=== PATIENT | female | born 1975 | race Caucasian/White ===

== ENCOUNTER 2024-01-08 14:14 | Inpatient (IN) | payer OTHER ==
--- NOTE | 2024-01-08 14:51 | ED ---
General Adult HPI - General Stated complaint: abd pain Time Seen by Provider: 01/08/24 14:15 Source: patient, RN notes reviewed, old records reviewed - History of Present Illness Initial comments: Is a 48-year-old female who presents to the emergency department from [facility]. Patient comes to us after having been seen at the other facility and had a CAT scan that indicated she had acute appendicitis and a questionable small abscess. Patient was started on Zosyn at the other facility. Dr. Alston accepted the patient after he spoke with the ER attending at the other facility. Patient states she has had pain for 8 to 9 days and finally decided to go get worked up. Patient states she currently still has some right lower quadrant abdominal pain and is requesting some pain meds. Patient denies any fevers chills. Patient Nuys any dysuria hematuria urinary frequency. Review of Systems ROS Statement: Those systems with pertinent positive or pertinent negative responses have been documented in the HPI. ROS Other: All systems not noted in ROS Statement are negative. General Exam - General Exam Comments Initial Comments: GENERAL: Patient is well-developed and well-nourished. Patient is nontoxic and well- hydrated and is in mild distress. ENT: Neck is soft and supple. No significant lymphadenopathy is noted. Oropharynx is clear. Moist mucous membranes. Neck has full range of motion without eliciting any pain. EYES: The sclera were anicteric and conjunctiva were pink and moist. Extraocular movements were intact and pupils were equal round and reactive to light. Eyelids were unremarkable. PULMONARY: Unlabored respirations. Good breath sounds bilaterally. No audible rales rhonchi or wheezing was noted. CARDIOVASCULAR: There is a regular rate and rhythm without any murmurs gallops or rubs. ABDOMEN: Patient has right lower quadrant abdominal pain. Patient has rebound tenderness SKIN: Skin is clear with no lesions or rashes and otherwise unremarkable. NEUROLOGIC: Patient is alert and oriented x3. Cranial nerves II through XII are grossly int act. Motor and sensory are also intact. Normal speech, volume and content. Symmetrical smile. MUSCULOSKELETAL: Normal extremities with adequate strength and full range of motion. No lower extremity swelling or edema. No calf tenderness. LYMPHATICS: No significant lymphadenopathy is noted PSYCHIATRIC: Normal psychiatric evaluation. Medical Decision Making - Medical Decision Making Was pt. sent in by a medical professional or institution (, PA, BRIDGE MAINTAINER, urgent care, hospital, or usp...) When possible be specific @ -[facility] transfer the patient to our institution the physician in the ER spoke with me directly Did you speak to anyone other than the patient for history (EMS, parent, family, police, friend...)? What history was obtained from this source @ -ER director at [facility] Did you review nursing and triage notes (agree or disagree)? Why? @ -I reviewed and agree with nursing and triage notes Were old charts reviewed (outside hosp., previous admission, EMS record, old EKG, old radiological studies, urgent care reports/EKG's, usp records)? Report findings @ -I reviewed all the patient's chart CAT scan on the patient after the patient arrived Differential Diagnosis? @ -Differential Abdominal Pain Women: Appendicitis, Cholecystitis, diverticulosis, ischemic bowel, pancreatitis, h epatitis, UTI, gastroenteritis, AAA, incarcerated hernia, bowel obstruction, constipation, inflammatory bowel, hepatitis, peptic ulcer disease, splenic infarction, perforated viscus, vulvitis, ovarian torsion, PID, kidney stone, placenta abruption, this is not meant to be an all-inclusive list EKG interpreted by me (3pts min.). @ -As above X-rays interpreted by me (1pt min.). @ -None done CT interpreted by me (1pt min.). @ -None done U/S interpreted by me (1pt. min.). @ -None done What testing was considered but not performed or refused? (CT, X-rays, U/S, labs)? Why? @ -None What meds were considered but not given or refused? Why? @ -None Did you discuss the management of the patient with other professionals (professionals i.e. , CARMEN, BRIDGE MAINTAINER, lab, RT, psych nurse, high school social studies tutor, spice miller, teacher, digital controls technical officer, case advocate)? Give summary @ -I spoke with Dr. Alston about this case and he excepted the admission Was smoking cessation discussed for >3mins.? @ -No Was critical care preformed (if so, how long)? @ -No Were there social determinants of health that impacted care today? How? (Homelessness, low income, unemployed, alcoholism, drug addiction, transportation, low edu. Level, literacy, decrease access to med. care, long term, rehab)? @ -No Was there de-escalation of care discussed even if they declined (Discuss DNR or withdrawal of care, Hospice)? DNR status @ -No What co-morbidities impacted this encounter? (DM, HTN, Smoking, COPD, CAD, Cancer, CVA, ARF, Chemo, Hep., AIDS, mental health diagnosis, sleep apnea, morbid obesity)? @ -None Was patient admitted / discharged? Hospital course, mention meds given and route, prescriptions, significant lab abnormalities, going to OR and other pertinent info. @ -Patient was given pain meds on arrival and patient will be admitted to Dr. Alston Undiagnosed new problem with uncertain prognosis? @ -No Drug Therapy requiring intensive monitoring for toxicity (Heparin, Nitro, Insulin, Cardizem)? @ -No Were any procedures done? @ -No Diagnosis/symptom? @ -Acute appendicitis Acute, or Chronic, or Acute on Chronic? @ -acute Uncomplicated (without systemic symptoms) or Complicated (systemic symptoms)? @ -Complicated Side effects of treatment? @ -No Exacerbation, Progression, or Severe Exacerbation? @ -No Poses a threat to life or bodily function? How? (Chest pain, [place], [place], pneumonia, PE, COPD, DKA, ARF, appy, cholecystitis, CVA, Diverticulitis, Homicidal, Suicidal, threat to staff... and all critical care pts) @ -Yes this could lead to sepsis and endorgan dysfunction Disposition Clinical Impression: Acute appendicitis Disposition: ADMITTED IP TO THIS HOSP Referrals: Nonstaff,Physician [Primary Care Provider] - 1-2 days Time of Disposition: 14:53
[2024-01-08] MEDS: HYDROmorphone 0.5 MG/0.5 ML SYRINGE IVP PRN ×2 (15:05→20:02)
[2024-01-08] MEDS: SODIUM CHLORIDE 0.9% 1,000 ML IV ONE (15:40)
--- NOTE | 2024-01-08 18:35 | P.GSCN ---
History of Present Illness History of present illness: 48-year-old female who presents to the emergency department from [facility]. Patient comes to us after having been seen at the other facility and had a CAT scan that indicated she had acute appendicitis and a questionable small abscess. Patient was started on Zosyn at the other facility. Dr. Alston accepted the patient after he spoke with the ER attending at the other facility. Patient states she has had pain for 8 to 9 days and finally decided to go get worked up. Patient states she currently still has some right lower quadrant abdominal pain and is requesting some pain meds. Patient denies any fevers chills. Patient Nuys any dysuria hematuria urinary frequency. Review of Systems - Gastrointestinal Reports abdominal pain, Reports change in bowel habits, Reports nausea, Reports vomiting Past Medical History Past Medical History: No Reported History History of Any Multi-Drug Resistant Organisms: None Reported Past Surgical History: Unable to Obtain Smoking Status: Current every day smoker Medications and Allergies Home Medications Medication Instructions Recorded Confirmed Type Atorvastatin [Lipitor] 10 mg PO DAILY 01/08/24 01/08/24 History DULoxetine HCL [Cymbalta] 60 mg PO DAILY 01/08/24 01/08/24 History Metoprolol Succinate [Metoprolol 25 mg PO DAILY 01/08/24 01/08/24 History Succinate ER] lisinopriL [Zestril] 5 mg PO DAILY 01/08/24 01/08/24 History metFORMIN HCL [Glucophage] 500 mg PO DAILY 01/08/24 01/08/24 History Allergies Allergy/AdvReac Type Severity Reaction Status Date / Time No Known Allergies Allergy Verified 01/08/24 15:36 Surgical - Exam Osteopathic Statement: *. No significant issues noted on an osteopathic structural exam other than those noted in the History and Physical/Consult. Vital Signs Temp Pulse Resp BP Pulse Ox 98.3 F 91 18 112/81 97 01/08/24 14:54 01/08/24 14:54 01/08/24 14:54 01/08/24 14:54 01/08/24 14:54 general anxious Cardiovascular regular rhythm Pulmonary nonlabored breathing Abdomen is soft nondistended tender in the right lower quadrant/flank no guarding rebound tenderness Assessment and Plan Assessment: 48-year-old female with acute appendicitis Assessment Flagyl Clear liquid diet nothing by mouth past midnight Operating room on 01/08/2023 4 Time with Patient: Less than 30
[2024-01-08] MEDS: HYDROcodone/APAP 5-325MG 1 EACH TAB PO PRN (21:05)
[2024-01-08] MEDS: ATORVASTATIN 10 MG TAB PO SCH (22:06)
[2024-01-08] MEDS: METOPROLOL SUCCINATE (ER) 25 MG TAB.ER.24H PO SCH (22:06)
[2024-01-08] MEDS: DULoxetine HCL 60 MG CAPSULE.DR PO SCH (22:06)
[2024-01-08] MEDS: lisinopriL 5 MG TAB PO SCH (22:06)
[2024-01-09] MEDS ORDERED: SUCCINYLCHOLINE CHLORIDE 200 MG/10 ML VIAL IV ONE (09:22)
[2024-01-09] MEDS ORDERED: fentaNYL (PF) 50 MCG/ML 2 ML AMP ONE (09:22)
[2024-01-09] MEDS ORDERED: KETAMINE HCL IN 0.9 % NACL 50 MG/5 ML SYRINGE ONE (09:22)
[2024-01-09] MEDS ORDERED: LIDOCAINE 1% INJ 10MG/ML (20 ML MDV) ONE (09:22)
[2024-01-09] MEDS ORDERED: HYDROmorphone (PF) 1 MG/ML ONE (09:22)
[2024-01-09] MEDS ORDERED: ROCURONIUM 10 MG/ML (5 ML VIAL) IV ONE (09:22)
[2024-01-09] MEDS ORDERED: PROPOFOL 10 MG/ML 20 ML VIAL IV ONE (09:22)
[2024-01-09] MEDS ORDERED: SUGAMMADEX SODIUM 200 MG/2 ML SDV IV ONE (09:22)
[2024-01-09] MEDS ORDERED: MIDAZOLAM 2 MG/2 ML VIAL ONE (09:22)
[2024-01-09] MEDS: SODIUM CHLORIDE 0.9% 1,000 ML IV ONE (09:22)
[2024-01-09] MEDS: LIDOCAINE 1%-EPI 1:100,000 20 ML VIAL SQ ONE (09:57)
[2024-01-09] MEDS: LACTATED RINGERS 1,000 ML IV ONE ×4 (10:37→11:50)
[2024-01-09] MEDS: HYDROmorphone 0.5 MG/0.5 ML SYRINGE IVP PRN (12:30)
[2024-01-09] MEDS: ONDANSETRON 4 MG/2 ML VIAL IVP STA (12:51)
[2024-01-09 13:31] LABS: Basophils # (A) 0.1 k/uL (0-0.2); Basophils % (A) 0 %; Eosinophils # (A) 0.1 k/uL (0-0.7); Eosinophils % (A) 1 %; HCT 40.3 % (34.0-46.0); HGB 12.9 gm/dL (11.4-16.0); Lymphocytes # (A) 1.2 k/uL (1.0-4.8); Lymphocytes % (A) 6 %; MCH 30.1 pg (25.0-35.0); MCV 94.1 fL (80.0-100.0); Mean Platelet Volume 7.4; Monocytes # (A) 0.4 k/uL (0-1.0); Monocytes % (A) 2 %; Neutrophils # (A) 17.4 k/uL (1.3-7.7); Neutrophils % (A) 90 %; Platelet Count 453 k/uL (150-450); RBC 4.29 m/uL (3.80-5.40); RDW 12.3 % (11.5-15.5); WBC 19.2 k/uL (3.8-10.6)
[2024-01-09 13:41] LABS: African American GFR (CKD) >90 (>60 ml/min/1.73 sqM); Anion Gap 8 mmol/L; Blood Urea Nitrogen 12 mg/dL (7-17); Calcium 8.6 mg/dL (8.4-10.2); Carbon Dioxide 20 mmol/L (22-30); Chloride 108 mmol/L (98-107); Glucose 136 mg/dL (74-99); Non-African American GFR(CKD) >90 (>60 ml/min/1.73 sqM); Potassium 4.2 mmol/L (3.5-5.1); Prothrombin Time 10.8 sec (10.0-12.5); Sodium 136 mmol/L (137-145)
[2024-01-09] MEDS: IV FLUID CONTINUATION 1,000 ML IV ONE (14:15)
[2024-01-09] MEDS ORDERED: HYDROmorphone 0.5 MG/0.5 ML SYRINGE IVP PRN (14:24)
[2024-01-09] MEDS ORDERED: NALOXONE 0.4 MG/ML 1 ML VIAL IV PRN (14:27)
[2024-01-09] MEDS: PHENYLEPHRINE-0.9% NACL SYG 1,000 MCG/10 ML SYRINGE IVP ONE (14:45)
[2024-01-09] MEDS: DEXAMETHASONE SOD PHOSPHATE 4 MG/ML 1 ML VIAL IV ONE (15:47)
[2024-01-09] MEDS: ONDANSETRON 4 MG/2 ML VIAL IVP ONE (16:14)
[2024-01-09] MEDS: LACTATED RINGERS 1,000 ML IV SCH (16:14)
[2024-01-09] MEDS: SODIUM CHLORIDE 0.9% 1,000 ML IV SCH (21:13)
--- NOTE | 2024-01-09 22:11 | P.OP ---
Date of Procedure: 01/09/24 Preoperative Diagnosis: abdominal pain Postoperative Diagnosis: perforated colon Procedure(s) Performed: lap converted to open ileocectomy Anesthesia: ASPEN Surgeon: Quintin Alston Estimated Blood Loss (ml): 500 Pathology: other (ileum/cecum) Condition: stable Disposition: PACU Indications for Procedure: ctap demonstrating acute appendicitis Operative Findings: perforated colon Description of Procedure: The patient was brought to the operating room where she was cleaned and draped and sterile fashion. At time I was performed and everyone agreed with the information recited. Next a 5 mm incision was made in the left upper quadrant and a 5 mm port within you gain access to the abdomen. There were 2 More ports were placed one in the infraumbilical area and one in the supra pubic area. Once of the abdomen a large Mass like structure was encountered in the right lower quadrant. I took some time to dissect this off of the lateral wall however I saw gross stool in the abdomen. It was decided to convert to an open procedure. A number 15 blade was then used to make a midline incision from the infraumbilical incision to the supra pubic incision. Electrocautery was then used to dissect down to the perineum and the abdomen was open. Combination of sharp and blunt dissection was used to, remove the colon off of the lateral wall. The stool was locally contained. I freed up the colon along the white line of todt. The small ball was stuck in the right lower quadrant with a ton of adhesions, and so this was freed up using it combination of electrocautery and blunt dissection. Once the colon and the small bowel was freed up an endo MICHELLE stable 60 purple was used to resect small bowel 5 cm away from the ic valve. Device was then used to take down the mesentery to the colon once colon was freed up the seed MICHELLE 60 purple was then used resect the cecum. An enterotomy/colotomy was made in both ends of the resected bowel segments. An endo michelle staple load was fired twice. The anastomosis was closed with another endo Michelle 60 purple. The abdomen was survey and there was some slight oozing. This was controlled with surgical powder. The abdomen was then closed using 1-0 looped pds suture in a running fashion. A barbara drain was placed and secured using a 30 nylon suture. The incision was closed using mary. The patient was transported to pacu in stable condition.
--- NOTE | 2024-01-10 06:13 | P.PN ---
Progress Note - Text Progress Note Date: 01/10/24 Patient was seen and evaluated at bedside. Postop day #1 , s/p Lap converted to open ileocectomy. Patient epidural solution @ 8 mL per hour. Patient is comfortably lying on the bed. Rated pain levels 0-1 out of 10 in severity. Moving extremities well without any difficulty. He denied any red flag symptoms, pain over the catheter site. Physical exam: Vital signs: stable, afebrile Catheter site: Clean, and intact Dressing. no tenderness over the catheter area. Moving lower extremities without difficulty. Labs: Platelet count: 453 on 01/10/24 Anticoagulants: none so far Assessment: Acute postoperative pain secondary to Lap converted to open ileocectomy. Postop day #1 Thoracic epidural catheter day #2 Plan: Continue epidural infusion solution of Ropivacaine 0.16% and Dilaudid 20 g per ml at the rate of 8 mL per hour. We will continue epidural catheter two more d ay unless primary team planned to send the patient home then we will discontinue. Call anesthesia as needed
[2024-01-10 11:34] LABS: African American GFR (CKD) >90 (>60 ml/min/1.73 sqM); Anion Gap 3 mmol/L; Blood Urea Nitrogen 17 mg/dL (7-17); Calcium 8.4 mg/dL (8.4-10.2); Carbon Dioxide 28 mmol/L (22-30); Chloride 108 mmol/L (98-107); Glucose 89 mg/dL (74-99); Non-African American GFR(CKD) >90 (>60 ml/min/1.73 sqM); Potassium 4.3 mmol/L (3.5-5.1); Sodium 139 mmol/L (137-145)
[2024-01-10 11:40] LABS: Basophils % (A) 0 %; Eosinophils % (A) 0 %; HCT 35.8 % (34.0-46.0); HGB 11.6 gm/dL (11.4-16.0); Lymphocytes # (A) 1.5 k/uL (1.0-4.8); Lymphocytes % (A) 11 %; MCH 30.5 pg (25.0-35.0); MCHC 32.3 g/dL (31.0-37.0); MCV 94.4 fL (80.0-100.0); Mean Platelet Volume 7.5; Monocytes # (A) 0.6 k/uL (0-1.0); Monocytes % (A) 5 %; Neutrophils # (A) 11.1 k/uL (1.3-7.7); Neutrophils % (A) 84 %; Platelet Count 414 k/uL (150-450); RBC 3.79 m/uL (3.80-5.40); RDW 12.2 % (11.5-15.5); WBC 13.3 k/uL (3.8-10.6)
--- NOTE | 2024-01-10 13:00 | P.PN ---
Subjective Progress Note Date: 01/10/24 SURGICAL PROGRESS NOTE CHIEF COMPLAINT: Perforated colon HISTORY OF PRESENT ILLNESS: Patient is postop day #1 status post laparoscopy converted to open ileocecectomy. Her pain is controlled. She is epidural in place. She is now having flatus. Denies any nausea or vomiting. Afebrile. WBC is down from 19.2-13.3 hemoglobin 11.6. Urine output adequate LAURA drain 80 mL output serosanguineous PHYSICAL EXAM: VITAL SIGNS: Reviewed. GENERAL: Well-developed in no acute distress. ABDOMEN: Soft. Nondistended. Mild tenderness at incision site. Incisional dressing with small area of saturation. NEUROLOGIC: Alert and oriented. Cranial nerves II through XII grossly intact. ASSESSMENT: 1. Masslike structure right lower quadrant and perforated colon status post open ileocecectomy PLAN: -Continue epidural for pain control -Continue Cheatham catheter -Advance diet to clear liquids -Incentive spirometer ordered -Continue IV fluids -DVT prophylaxis subcu heparin and GI prophylaxis Pepcid Physician Used Car Make Ready Mechanic note has been reviewed by physician. Signing provider agrees with the documented findings, assessment, and plan of care. Objective - Vital Signs Vital signs: Vital Signs Temp 98.8 F 01/10/24 06:45 Pulse 83 01/10/24 06:45 Resp 17 01/10/24 06:45 BP 94/59 01/10/24 06:45 Pulse Ox 92 L 01/10/24 06:45 FiO2 Intake & Output 01/09/24 01/10/24 01/10/24 18:59 06:59 18:59 Intake Total 3350 Output Total 1310 120 Balance 2040 -120 Intake: IV 3350 Output: Drainage 160 120 Abdomen 160 120 Urine 650 Estimated Blood Loss 500 Other: Voiding Method Indwelling Catheter Indwelling Catheter - Labs CBC & Chem 7: 01/10/24 10:47 01/10/24 10:47 Labs: Abnormal Lab Results - Last 24 Hours (Table) 01/09/24 01/09/24 01/10/24 Range/Units 13:01 13:01 10:47 WBC 19.2 H 13.3 H (3.8-10.6) k/uL RBC 3.79 L (3.80-5.40) m/uL Plt Count 453 H (150-450) k/uL Neutrophils # 17.4 H 11.1 H (1.3-7.7) k/uL Sodium 136 L (137-145) mmol/L Chloride 108 H (98-107) mmol/L Carbon Dioxide 20 L (22-30) mmol/L Creatinine 0.50 L (0.52-1.04) mg/dL Glucose 136 H (74-99) mg/dL 01/10/24 Range/Units 10:47 WBC (3.8-10.6) k/uL RBC (3.80-5.40) m/uL Plt Count (150-450) k/uL Neutrophils # (1.3-7.7) k/uL Sodium (137-145) mmol/L Chloride 108 H (98-107) mmol/L Carbon Dioxide (22-30) mmol/L Creatinine (0.52-1.04) mg/dL Glucose (74-99) mg/dL Microbiology - Last 24 Hours (Table) 01/09/24 12:00 Gram Stain - Preliminary Appendix
[2024-01-10] MEDS: ROPIVACAINE 400 MG, HYDROMORPHONE (PF) 5 MG in SODIUM CHLORIDE 0.9% 170 ML EPIDURAL PRN (17:34)
[2024-01-10] MEDS: FAMOTIDINE 20 MG TAB PO SCH (21:56)
[2024-01-10] MEDS: HEPARIN SODIUM,PORCINE 5,000 UNIT/ML 1 ML VIAL SQ SCH (21:57)
[2024-01-11 08:30] LABS: Basophils # (A) 0.02 X 10*3/uL (0.00-0.10); Basophils % (A) 0.1 %; Eosinophils # (A) 0.02 X 10*3/uL (0.04-0.35); Eosinophils % (A) 0.1 %; HCT 30.5 % (37.2-46.3); HGB 9.4 g/dL (12.0-15.0); Lymphocytes # (A) 1.52 X 10*3/uL (0.90-5.00); Lymphocytes % (A) 10.8 %; MCH 30.2 pg (27.0-32.0); MCHC 30.8 g/dL (32.0-37.0); MCV 98.1 FL (80.0-97.0); Mean Platelet Volume 11.5 FL (9.5-12.2); Monocytes # (A) 1.08 X 10*3/uL (0.20-1.00); Monocytes % (A) 7.6 %; NRBC Per 100 WBC 0 X 10*3/uL (0.00-0.01); Neutrophils # (A) 11.41 X 10*3/uL (1.80-7.70); Neutrophils % (A) 80.8 %; Platelet Count 333 X 10*3/uL (140-440); RBC 3.11 X 10*6/uL (4.10-5.20); RDW 12.8 % (11.5-14.5); WBC 14.13 X 10*3/uL (4.50-10.00)
--- NOTE | 2024-01-11 10:50 | P.PN ---
Progress Note - Text 01/11/24 644am 48-year-old female status post exploratory lap. Patient has an epidural catheter for postop pain control with a solution running at 8 cc an hour with a VAS of 1. No complaint of nausea vomiting or pruritus. Patient has been able to ambulate. Plan to DC the epidural in a.m. tomorrow
[2024-01-11] MEDS: PIPERACILLIN-TAZOBACTAM 3.375 GM in SODIUM CHLORIDE 0.9% 100 ML IVPB SCH (15:02)
--- NOTE | 2024-01-11 15:05 | P.PN ---
Subjective Progress Note Date: 01/11/24 SURGICAL PROGRESS NOTE CHIEF COMPLAINT: Perforated colon HISTORY OF PRESENT ILLNESS: Patient is postop day #2 status post laparoscopy converted to open ileocecectomy. Patient is having drainage from the midline incision. Drainage is purulent with foul odor. She is having flatus. Denies any nausea or vomiting. Has epidural in place. Pain is controlled. Afebrile. No tachycardia. WBC did go up from 13.3-14.13 hemoglobin 11.6 down to 9.4 platelets 333 PHYSICAL EXAM: VITAL SIGNS: Reviewed. GENERAL: Well-developed in no acute distress. ABDOMEN: Soft. Nondistended. Incisional dressing was saturated. This was pulled back. Patient did have purulent foul-smelling drainage from lower midli ne incision. NEUROLOGIC: Alert and oriented. Cranial nerves II through XII grossly intact. ASSESSMENT: 1. Masslike structure right lower quadrant and perforated colon status post open ileocecectomy PLAN: -Start IV antibiotics -Culture drainage -Continue to monitor -Repeat CBC in a.m. -Continue epidural for pain control -Continue Cheatham catheter -Continue clear liquids -Incentive spirometer ordered -Continue IV fluids -DVT prophylaxis subcu heparin and GI prophylaxis Pepcid Physician Lead Software Tester note has been reviewed by physician. Signing provider agrees with the documented findings, assessment, and plan of care. Attestation Patient seen and examined at bedside. She does have drainage from the midline incision from the lower portion. Cultures were obtained. Patient was started on IV antibiotics. Recommended dressing changes as needed. Continue to follow white count. Increase activities. Continue Cheatham catheter as long as epidural is in place. Continue clear liquids for now. Maribeth Katz DO Objective - Vital Signs Vital signs: Vital Signs Temp 99.6 F 01/11/24 13:45 Pulse 91 01/11/24 13:45 Resp 17 01/11/24 13:45 BP 111/71 01/11/24 13:45 Pulse Ox 98 01/11/24 13:45 FiO2 Intake & Output 01/10/24 01/11/24 01/11/24 18:59 06:59 18:59 Intake Total 152.4 Output Total 660 300 Balance -660 -300 152.4 Intake: Intake, IV Titration 152.4 Amount Ropivacaine 400 mg 152.4 Hydromorphone (Pf) 5 mg In Sodium Chloride 0.9% 170 ml @ Per Protocol EPIDURAL .Q0M PRN Rx#: [id number] Output: Drainage 60 100 Abdomen 60 100 Urine 600 200 Other: Voiding Method Indwelling Catheter Indwelling Catheter Indwelling Catheter - Labs CBC & Chem 7: 01/11/24 02:19 01/10/24 10:47 Labs: Abnormal Lab Results - Last 24 Hours (Table) 01/11/24 Range/Units 02:19 WBC 14.13 H (4.50-10.00) X 10*3/uL RBC 3.11 L (4.10-5.20) X 10*6/uL Hgb 9.4 L (12.0-15.0) g/dL Hct 30.5 L (37.2-46.3) % MCV 98.1 H (80.0-97.0) FL MCHC 30.8 L (32.0-37.0) g/dL Immature Gran # 0.08 H (0.00-0.04) X 10*3/uL Neutrophils # 11.41 H (1.80-7.70) X 10*3/uL Monocytes # 1.08 H (0.20-1.00) X 10*3/uL Eosinophils # 0.02 L (0.04-0.35) X 10*3/uL Microbiology - Last 24 Hours (Table) 01/09/24 12:00 Gram Stain - Preliminary Appendix Wound Culture - Preliminary Gram Neg Bacilli
--- NOTE | 2024-01-12 06:04 | P.PN ---
Progress Note - Text Adequate analgesia with epidural. No epidural or anesthetic complications.
[2024-01-12 08:39] LABS: Blood Urea Nitrogen 10.8 mg/dL (9.0-27.0); Calcium 7.8 mg/dL (8.7-10.3); Carbon Dioxide 21.5 mmol/L (21.6-31.8); Chloride 106 mmol/L (96-109); Glucose 94 mg/dL (70-110); Potassium 3.5 mmol/L (3.5-5.5); Sodium 139 mmol/L (135-145)
[2024-01-12 09:25] LABS: Basophils # (A) 0.03 X 10*3/uL (0.00-0.10); Basophils % (A) 0.2 %; Eosinophils # (A) 0.09 X 10*3/uL (0.04-0.35); Eosinophils % (A) 0.7 %; HCT 29.6 % (37.2-46.3); HGB 9.3 g/dL (12.0-15.0); Lymphocytes # (A) 1.64 X 10*3/uL (0.90-5.00); MCH 30.9 pg (27.0-32.0); MCHC 31.4 g/dL (32.0-37.0); MCV 98.3 FL (80.0-97.0); Mean Platelet Volume 11.1 FL (9.5-12.2); Monocytes # (A) 0.85 X 10*3/uL (0.20-1.00); Monocytes % (A) 6.2 %; NRBC Per 100 WBC 0 X 10*3/uL (0.00-0.01); Neutrophils # (A) 10.99 X 10*3/uL (1.80-7.70); Neutrophils % (A) 80.3 %; Platelet Count 301 X 10*3/uL (140-440); RBC 3.01 X 10*6/uL (4.10-5.20); RDW 12.8 % (11.5-14.5); WBC 13.68 X 10*3/uL (4.50-10.00)
[2024-01-12] MEDS: LORazepam 0.5 MG TAB PO PRN (11:00)
--- NOTE | 2024-01-12 16:04 | P.PN ---
Subjective Progress Note Date: 01/12/24 SURGICAL PROGRESS NOTE CHIEF COMPLAINT: Perforated colon HISTORY OF PRESENT ILLNESS: Patient is postop day #3 status post laparoscopy converted to open ileocecectomy. Patient continues to have purulent drainage from the midline incision. She does report abdominal pain. She does have epidural in place for pain control. Cheatham catheter with pink purulent urine. Afebrile. WBC is down from 14-13 Hgb 9.3 PHYSICAL EXAM: VITAL SIGNS: Reviewed. GENERAL: Well-developed in no acute distress. ABDOMEN: Soft. Nondistended. Midline incision with purulent foul drainage NEUROLOGIC: Alert and oriented. Cranial nerves II through XII grossly intact. ASSESSMENT: 1. Masslike structure right lower quadrant and perforated colon status post open ileocecectomy 2. Surgical site infection PLAN: -Dr. Katz removed 2 mary from the midline incision -Continue antibiotics -Follow-up on culture results. Per nursing staff a new culture needs to be obtained from drainage. -Urinalysis ordered for evaluation of cloudy urine -Epidural and Cheatham catheter to be removed tomorrow -Diet advanced to full liquids -Ativan added for anxiety -Repeat CBC in a.m. -Incentive spirometer ordered -Decrease IV fluids to 75 mL/h -DVT prophylaxis subcu heparin and GI prophylaxis Pepcid Physician Director Of People note has been reviewed by physician. Signing provider agrees with the documented findings, assessment, and plan of care. Attestation Patient seen and examined at bedside. 2 mary were removed from midline inc ision as patient is having some purulent drainage. She is on IV antibiotics. Purulent drainage was removed after pressure applied to sides of the wound. We will follow-up culture results. Urine is also slightly cloudy and urinalysis to be performed. Epidural and Cheatham catheter to be removed tomorrow. Diet advanced to full liquid diet. Continue to increase activity. Continue to monitor leukocytosis. Maribeth Katz DO Objective - Vital Signs Vital signs: Vital Signs Temp 98.0 F 01/12/24 07:00 Pulse 75 01/12/24 07:00 Resp 17 01/12/24 08:39 BP 110/64 01/12/24 07:00 Pulse Ox 97 01/12/24 07:00 FiO2 Intake & Output 01/11/24 01/12/24 01/12/24 18:59 06:59 18:59 Intake Total 252.4 75.6 Output Total 45 220 10 Balance 207.4 -144.4 -10 Intake: Intake, IV Titration 152.4 75.6 Amount Ropivacaine 400 mg 152.4 75.6 Hydromorphone (Pf) 5 mg In Sodium Chloride 0.9% 170 ml @ Per Protocol EPIDURAL .Q0M PRN Rx#: [id number] Oral 100 Output: Drainage 45 20 10 Abdomen 45 20 10 Urine 200 Other: Voiding Method Indwelling Catheter Indwelling Catheter Indwelling Catheter - Labs CBC & Chem 7: 01/12/24 02:26 01/12/24 02:26 Labs: Abnormal Lab Results - Last 24 Hours (Table) 01/12/24 01/12/24 Range/Units 02: 02:26 WBC 13.68 H (4.50-10.00) X 10*3/uL RBC 3.01 L (4.10-5.20) X 10*6/uL Hgb 9.3 L (12.0-15.0) g/dL Hct 29.6 L (37.2-46.3) % MCV 98.3 H (80.0-97.0) FL MCHC 31.4 L (32.0-37.0) g/dL Immature Gran # 0.08 H (0.00-0.04) X 10*3/uL Neutrophils # 10.99 H (1.80-7.70) X 10*3/uL Carbon Dioxide 21.5 L (21.6-31.8) mmol/L Creatinine 0.5 L (0.6-1.5) mg/dL BUN/Creatinine Ratio 21.60 H (12.00-20.00) Ratio Calcium 7.8 L (8.7-10.3) mg/dL Microbiology - Last 24 Hours (Table) 01/11/24 12:00 Gram Stain - Preliminary Abdomen Wound Culture - Preliminary Pseudomonas aeruginosa Klebsiella oxytoca 01/09/24 12:00 Gram Stain - Final Appendix Wound Culture - Final Klebsiella pneumoniae Klebsiella ornithinolytica
[2024-01-12 16:37] LABS: Appearance,Urine Cloudy (Clear); Bacteria,Urine Rare /hpf; Bilirubin,Urine 1+ (Negative); Blood,Urine Moderate (Negative); Color,Urine Dark Yellow; Glucose,Urine (UA) Negative (Negative); Ketones,Urine Negative (Negative); Leukocyte Esterase,Urine Trace (Negative); Mucus,Urine Occasional /hpf; Nitrite,Urine Negative (Negative); Protein,Urine 1+ (Negative); RBC,Urine 47 /hpf (0-5); Specific Gravity,Urine 1.037 (1.001-1.035); WBC,Urine 6 /hpf (0-5)
[2024-01-13 08:42] LABS: Basophils # (A) 0.02 X 10*3/uL (0.00-0.10); Basophils % (A) 0.2 %; Eosinophils # (A) 0.16 X 10*3/uL (0.04-0.35); Eosinophils % (A) 1.7 %; HCT 28.2 % (37.2-46.3); HGB 8.6 g/dL (12.0-15.0); Lymphocytes # (A) 1.91 X 10*3/uL (0.90-5.00); Lymphocytes % (A) 19.7 %; MCH 30.2 pg (27.0-32.0); MCHC 30.5 g/dL (32.0-37.0); MCV 98.9 FL (80.0-97.0); Mean Platelet Volume 11.1 FL (9.5-12.2); Monocytes # (A) 0.64 X 10*3/uL (0.20-1.00); Monocytes % (A) 6.6 %; NRBC Per 100 WBC 0 X 10*3/uL (0.00-0.01); Neutrophils # (A) 6.87 X 10*3/uL (1.80-7.70); Platelet Count 357 X 10*3/uL (140-440); RBC 2.85 X 10*6/uL (4.10-5.20); RDW 12.9 % (11.5-14.5); WBC 9.68 X 10*3/uL (4.50-10.00)
[2024-01-13] MEDS ORDERED: HYDROmorphone 1 MG/ML 1 ML SYRINGE IVP PRN (09:07)
[2024-01-13] MEDS: HYDROcodone/APAP 5-325MG 1 EACH TAB PO PRN (11:18)
[2024-01-13] MEDS: MORPHINE SULFATE 4 MG/ML SYRINGE IVP PRN (13:10)
--- NOTE | 2024-01-13 15:02 | P.PN ---
Subjective Progress Note Date: 01/13/24 SURGICAL PROGRESS NOTE CHIEF COMPLAINT: Perforated colon HISTORY OF PRESENT ILLNESS: Patient is postop day #4 status post laparoscopy converted to open ileocecectomy. Patient continues to have purulent drainage from incision site. Surgeon removed 2 mary from abdomen. LAURA drain output is now purulent. Patient had 30 mL output from LAURA drain. She reports her pain is controlled. Epidural and Cheatham catheter to be removed today. She is having flatus. Afebrile. WBC is down from 13-9.68 Hgb 8.6 PHYSICAL EXAM: VITAL SIGNS: Reviewed. GENERAL: Well-developed in no acute distress. ABDOMEN: Soft. Nondistended. Midline incision with purulent foul drainage NEUROLOGIC: Alert and oriented. Cranial nerves II through XII grossly intact. ASSESSMENT: 1. Acute appendicitis with perforation and abscess. Status post open ileocecectomy 2. Surgical site infection PLAN: -Cheatham catheter and epidural to be discontinued today -IV morphine and [place] added for pain management -Consult infectious disease for antibiotic management -Continue antibiotics -Continue full liquid diet -Continue IV fluids -DVT prophylaxis subcu heparin and GI prophylaxis Pepcid Physician Application Support Administrator note has been reviewed by physician. Signing provider agrees with the documented findings, assessment, and plan of care. Objective - Vital Signs Vital signs: Vital Signs Temp 97.8 F 01/13/24 13:46 Pulse 66 01/13/24 13:46 Resp 16 01/13/24 13:46 BP 119/78 01/13/24 13:46 Pulse Ox 98 01/13/24 13:46 FiO2 Intake & Output 01/12/24 01/13/24 01/13/24 18:59 06:59 18:59 Intake Total 216.9 200 Output Total 330 360 30 Balance -330 -143.1 170 Intake: Intake, IV Titration 216.9 Amount Ropivacaine 400 mg 216.9 Hydromorphone (Pf) 5 mg In Sodium Chloride 0.9% 170 ml @ Per Protocol EPIDURAL .Q0M PRN Rx#: [id number] Oral 200 Output: Drainage 30 10 30 Abdomen 30 10 30 Urine 300 350 Other: Voiding Method Indwelling Catheter Indwelling Catheter Indwelling Catheter - Labs CBC & Chem 7: 01/13/24 02:06 01/12/24 02:26 Labs: Abnormal Lab Results - Last 24 Hours (Table) 01/12/24 01/13/24 Range/Units 15:47 02:06 RBC 2.85 L (4.10-5.20) X 10*6/uL Hgb 8.6 L (12.0-15.0) g/dL Hct 28.2 L (37.2-46.3) % MCV 98.9 H (80.0-97.0) FL MCHC 30.5 L (32.0-37.0) g/dL Immature Gran # 0.08 H (0.00-0.04) X 10*3/uL Urine Appearance Cloudy H (Clear) Ur Specific [place] 1.037 H (1.001-1.035) Urine Protein 1+ H (Negative) Urine Blood Moderate H (Negative) Urine Bilirubin 1+ H (Negative) Ur Leukocyte Esterase Trace H (Negative) Urine RBC 47 H (0-5) /hpf Urine WBC 6 H (0-5) /hpf Urine Bacteria Rare H (None) /hpf Urine Mucus Occasional H (None) /hpf Microbiology - Last 24 Hours (Table) 01/12/24 17:01 Gram Stain - Preliminary Abdomen 01/11/24 12:00 Gram Stain - Final Abdomen Wound Culture - Final Pseudomonas aeruginosa Klebsiella oxytoca Assessment and Plan Assessment: 48 yo female s/p ileocectomy -s/p abscess formation, continue IV abx -follow up ID recs -anticipate discharge this wednesday -follow up pathology Time with Patient: Less than 30
--- NOTE | 2024-01-13 22:54 | P.CONS ---
History of Present Illness - Reason for Consult Consult date: 01/13/24 Abdominal infection Requesting physician: Ayesha Arechiga - Chief Complaint Abdominal pain x few days - History of Present Illness Patient is a 48-year-old female with no significant past medical history presenting to the hospital 5 days ago for evaluation of abdominal pain in this patient who was initially evaluated at [facility] did have a CT suggestive of acute appendicitis and a question of small abscess patient was subsequently transferred to [facility] for surgical evaluation patient was taken to the OR on 01/09/2024 and did have a lap converted to open ileocecectomy with evidence of gross stool in the abdomen patient on presentation to the hospital was afebrile she did have 1 low-grade fever of 99.9 on 01/11/2024 patient has not been tachycardic except 1 time not hypotensive or hypoxic patient did have elevated white count of 19.2 which is currently down to 9.68 creatinine has been normal the abdominal culture did grew Klebsiella that is a sensitive pathogen subsequently the patient did have some drainage from abdominal wound cultures are growing Pseudomonas aeruginosa as well as Klebsiella patient has been treated with [facility] infectious disease consulted today for further management of antibiotic therapy as mentioned earlier patient denies having any fever or any chills denies having any URI symptoms no chest pain shortness of breath or cough no nausea vomiting abdominal pain has decreased intensity did have minimal drainage Review of Systems Positive point and negatives has been mentioned in the HPI, complete review of systems was performed and all other systems are negative Past Medical History Past Medical History: No Reported History History of Any Multi-Drug Resistant Organisms: None Reported Past Surgical History: Unable to Obtain Smoking Status: Current every day smoker Medications and Allergies Home Medications Medication Instructions Recorded Confirmed Type Atorvastatin [Lipitor] 10 mg PO DAILY 01/08/24 01/08/24 History DULoxetine HCL [Cymbalta] 60 mg PO DAILY 01/08/24 01/08/24 History Metoprolol Succinate [Metoprolol 25 mg PO DAILY 01/08/24 01/08/24 History Succinate ER] lisinopriL [Zestril] 5 mg PO DAILY 01/08/24 01/08/24 History metFORMIN HCL [Glucophage] 500 mg PO DAILY 01/08/24 01/08/24 History Allergies Allergy/AdvReac Type Severity Reaction Status Date / Time No Known Allergies Allergy Verified 01/08/24 15:36 Physical Exam Vitals: Vital Signs Temp Pulse Resp BP Pulse Ox 01/13/24 11:24 64 16 01/13/24 07:10 98.4 F 64 16 118/77 96 01/13/24 02:01 98.3 F 73 19 93/62 96 01/12/24 19:30 99.0 F 74 14 104/65 96 01/12/24 13:57 98.2 F 84 17 110/73 96 Intake and Output 01/12/24 01/13/24 01/13/24 22:59 06:59 14:59 Intake Total 216.9 Output Total 300 360 20 Balance -83.1 -360 -20 Intake: Intake, IV Titration 216.9 Amount Ropivacaine 400 mg 216.9 Hydromorphone (Pf) 5 mg In Sodium Chloride 0.9% 170 ml @ Per Protocol EPIDURAL .Q0M PRN Rx#: [id number] Output: Drainage 10 20 Abdomen 10 20 Urine 300 350 Other: Voiding Method Indwelling Catheter Indwelling Catheter GENERAL DESCRIPTION: Middle-aged female lying in bed, no distress. No tachypnea or accessory muscle of respiration use. HEENT: Shows Pallor , no scleral icterus. Oral mucous membrane is dry. NECK: Trachea central, no thyromegaly. LUNGS: Unlabored breathing. Clear to auscultation anteriorly. No wheeze or crackle. HEART: S1, S2, regular rate and rhythm. No loud murmur ABDOMEN: Soft, midline incision is intact with minimal drainage on the dressing mild tenderness EXTREMITIES: No edema of feet. SKIN: No rash, no masses palpable. NEUROLOGICAL: The patient is awake, alert, oriented x3, mood and affect normal. Results CBC & Chem 7: 01/13/24 02:06 01/12/24 02:26 Labs: Abnormal Lab Results - Last 24 Hours (Table) 01/12/24 01/13/24 Range/Units 15:47 02:06 RBC 2.85 L (4.10-5.20) X 10*6/uL Hgb 8.6 L (12.0-15.0) g/dL Hct 28.2 L (37.2-46.3) % MCV 98.9 H (80.0-97.0) FL MCHC 30.5 L (32.0-37.0) g/dL Immature Gran # 0.08 H (0.00-0.04) X 10*3/uL Urine Appearance Cloudy H (Clear) Ur Specific [place] 1.037 H (1.001-1.035) Urine Protein 1+ H (Negative) Urine Blood Moderate H (Negative) Urine Bilirubin 1+ H (Negative) Ur Leukocyte Esterase Trace H (Negative) Urine RBC 47 H (0-5) /hpf Urine WBC 6 H (0-5) /hpf Urine Bacteria Rare H (None) /hpf Urine Mucus Occasional H (None) /hpf Microbiology - Last 24 Hours (Table) 01/11/24 12:00 Gram Stain - Final Abdomen Wound Culture - Final Pseudomonas aeruginosa Klebsiella oxytoca Assessment and Plan (1) Sepsis Current Visit: Yes Status: Acute Code(s): A41.9 - SEPSIS, UNSPECIFIED ORGANISM SNOMED Code(s): 67005908 (2) Perforated appendicitis Current Visit: Yes Status: Acute Code(s): K35.32 - AC APPENDICITIS W PERF, LOC PERITONITIS, & GANGR, W/O ABSCS SNOMED Code(s): 65887493 (3) Leukocytosis Current Visit: Yes Status: Acute Code(s): D72.829 - ELEVATED WHITE BLOOD CELL COUNT, UNSPECIFIED SNOMED Code(s): 769649470 (4) Intra-abdominal abscess Current Visit: Yes Status: Acute Code(s): K65.1 - PERITONEAL ABSCESS SNOMED Code(s): 42821778 (5) Pseudomonas aeruginosa infection Current Visit: Yes Status: Acute Code(s): A49.8 - OTHER BACTERIAL INFECTIONS OF UNSPECIFIED SITE SNOMED Code(s): 16019769 Plan: 1patient presented to hospital with sepsis in this patient who did have a fever tachycardia elevated white count meeting criteria for SIRS source is perforated appendicitis with intra-abdominal abscess with intra-abdominal culture growing Klebsiella subsequently did have some purulent drainage from abdominal incision those are growing Pseudomonas in addition to Klebsiella. 2keeping in mind the patient did have perforated appendicitis with gross stool in the abdomen and did have an abscess that was drained still having purulent drainage it would be better to continue with the course of IV antibiotic on dis charge at the same time the patient is on Cymbalta that is interacting with the Cipro only oral option we have for the Pseudomonas 3-we will continue the patient on Zosyn obtain a midline on DC for outpatient IV antibiotic therapy and director of casework department to arrange for outpatient antibiotics Question concern answered We will follow on clinical condition and cultures to further adjust medication if needed Thank you for this consultation we will follow the patient along with you Dictation was produced using [employer] dictation software. please excuse any grammatical, word or spelling errors. Time with Patient: Greater than 30
[2024-01-14 08:48] LABS: Basophils # (A) 0.02 X 10*3/uL (0.00-0.10); Basophils % (A) 0.3 %; Eosinophils # (A) 0.17 X 10*3/uL (0.04-0.35); Eosinophils % (A) 2.2 %; HGB 8.8 g/dL (12.0-15.0); Lymphocytes # (A) 1.74 X 10*3/uL (0.90-5.00); Lymphocytes % (A) 22.7 %; MCH 29.9 pg (27.0-32.0); MCHC 31.4 g/dL (32.0-37.0); MCV 95.2 FL (80.0-97.0); Mean Platelet Volume 11.1 FL (9.5-12.2); Monocytes # (A) 0.53 X 10*3/uL (0.20-1.00); Monocytes % (A) 6.9 %; NRBC Per 100 WBC 0 X 10*3/uL (0.00-0.01); Neutrophils # (A) 5.14 X 10*3/uL (1.80-7.70); Platelet Count 359 X 10*3/uL (140-440); RBC 2.94 X 10*6/uL (4.10-5.20); RDW 12.8 % (11.5-14.5); WBC 7.67 X 10*3/uL (4.50-10.00)
--- NOTE | 2024-01-14 13:17 | P.PN ---
Subjective Progress Note Date: 01/14/24 Principal diagnosis: Reason for follow-up is perforated appendicitis intra-abdominal abscess Patient is a 48-year-old female with no significant past medical history presenting to the hospital for evaluation of abdominal pain has been diagnosed with perforated appendicitis intra-abdominal abscess status post open ileocecectomy abdominal culture grew Klebsiella with subsequent culture growing Pseudomonas as well probably this consultation. On today's evaluation that is 01/14/2024, patient has been afebrile, patient is breathing comfortably and is currently on room air, patient denies having any significant cough no chest pain, patient denies nausea vomiting or diarrhea and abdominal pain has decreased intensity mention less drainage. Patient white count 7.67 Objective - Vital Signs Vital signs: Vital Signs Temp 97.6 F 01/14/24 07:07 Pulse 71 01/14/24 07:07 Resp 17 01/14/24 07:07 BP 144/84 01/14/24 07:07 Pulse Ox 98 01/14/24 08:23 FiO2 Intake & Output 01/13/24 01/14/24 01/14/24 18:59 06:59 18:59 Intake Total 300 Output Total 80 460 Balance 220 -460 Intake: Oral 300 Output: Drainage 80 60 Abdomen 80 60 Urine 400 Other: Voiding Method Indwelling Catheter Toilet # Bowel Movements 1 - Exam GENERAL DESCRIPTION: Middle-age female lying in bed in no distress RESPIRATORY SYSTEM: Unlabored breathing , decreased breath sounds at bases HEART: S1 S2 regular rate and rhythm , ABDOMEN: Soft , mild distention less drainage of the dressing EXTREMITIES: No edema feet - Labs CBC & Chem 7: 01/14/24 02:28 01/12/24 02:26 Labs: Abnormal Lab Results - Last 24 Hours (Table) 01/14/24 Range/Units 02:28 RBC 2.94 L (4.10-5.20) X 10*6/uL Hgb 8.8 L (12.0-15.0) g/dL Hct 28.0 L (37.2-46.3) % MCHC 31.4 L (32.0-37.0) g/dL Immature Gran # 0.07 H (0.00-0.04) X 10*3/uL Microbiology - Last 24 Hours (Table) 01/12/24 17:01 Gram Stain - Preliminary Abdomen Wound Culture - Preliminary Gram Neg Bacilli 01/11/24 12:00 Gram Stain - Final Abdomen Wound Culture - Final Pseudomonas aeruginosa Klebsiella oxytoca Assessment and Plan (1) Sepsis Current Visit: Yes Status: Acute Code(s): A41.9 - SEPSIS, UNSPECIFIED ORGANISM SNOMED Code(s): 00912200 (2) Perforated appendicitis Current Visit: Yes Status: Acute Code(s): K35.32 - AC APPENDICITIS W PERF, LOC PERITONITIS, & GANGR, W/O ABSCS SNOMED Code(s): 81285102 (3) Leukocytosis Current Visit: Yes Status: Acute Code(s): D72.829 - ELEVATED WHITE BLOOD CELL COUNT, UNSPECIFIED SNOMED Code(s): 603229471 (4) Intra-abdominal abscess Current Visit: Yes Status: Acute Code(s): K65.1 - PERITONEAL ABSCESS SNOMED Code(s): 08382682 (5) Pseudomonas aeruginosa infection Current Visit: Yes Status: Acute Code(s): A49.8 - OTHER BACTERIAL INFECTIONS OF UNSPECIFIED SITE SNOMED Code(s): 17979148 Plan: 1patient presented to hospital with sepsis in this patient who did have a fever tachycardia elevated white count meeting criteria for SIRS source is perforated appendicitis with intra-abdominal abscess with intra-abdominal culture growing Klebsiella subsequently did have some purulent drainage from abdominal incision those are growing Pseudomonas in addition to Klebsiella. 2keeping in mind the patient did have perforated appendicitis with gross stool in the abdomen and did have an abscess that was drained still having purulent drainage it would be better to continue with the course of IV antibiotic on discharge at the same time the patient is on Cymbalta that is interacting with the Cipro only oral option we have for the Pseudomonas 3-discussed with the rn case manager to arrange for outpatient IV antibiotic therapy and for now continue with Zosyn Dictation was produced using [employer] software. please excuse any grammatical, word or spelling errors.
[2024-01-14 13:56] VITALS: BMI 41.5
--- NOTE | 2024-01-14 14:45 | P.PN ---
Subjective Progress Note Date: 01/14/24 SURGICAL PROGRESS NOTE CHIEF COMPLAINT: Perforated colon HISTORY OF PRESENT ILLNESS: Patient is postop day #5 status post laparoscopy converted to open ileocecectomy. Patient reports that she is starting to feel better. She is still having some pain. Denies any nausea or vomiting. She did have a bowel movement. LAURA drain 20ml purulent output. Patient has decrease in the amount of drainage from midline incision. Afebrile. WBC 7.69 Hgb 8.8 PHYSICAL EXAM: VITAL SIGNS: Reviewed. GENERAL: Well-developed in no acute distress. ABDOMEN: Soft. Nondistended. Midline incision decrease drainage noted. Drainage is purulent on dressing no erythema. NEUROLOGIC: Alert and oriented. Cranial nerves II through XII grossly intact. ASSESSMENT: 1. Acute appendicitis with perforation and abscess. Status post open ileocecectomy 2. Intra-abdominal infection PLAN: -Continue low fiber diet -Infectious disease recommending IV antibiotics at discharge. water manager working on arranging IV antibiotics -IR consulted for PICC line placement for home IV antibiotics -Continue pain management -Encourage patient to ambulate -Discontinue IV fluids -Abdominal binder ordered -DVT prophylaxis subcu heparin and GI prophylaxis Pepcid Physician Document Management Specialist note has been reviewed by physician. Signing provider agrees with the documented findings, assessment, and plan of care. Objective - Vital Signs Vital signs: Vital Signs Temp 98.1 F 01/14/24 13:33 Pulse 74 01/14/24 13:33 Resp 17 01/14/24 13:33 BP 121/75 01/14/24 13:33 Pulse Ox 98 01/14/24 13:33 FiO2 Intake & Output 01/13/24 01/14/24 01/14/24 18:59 06:59 18:59 Intake Total 300 Output Total 80 460 10 Balance 220 -460 -10 Weight 113.398 kg Intake: Oral 300 Output: Drainage 80 60 10 Abdomen 80 60 10 Urine 400 Other: Voiding Method Indwelling Catheter Toilet # Bowel Movements 1 - Labs CBC & Chem 7: 01/14/24 02:28 01/12/24 02:26 Labs: Abnormal Lab Results - Last 24 Hours (Table) 01/14/24 Range/Units 02:28 RBC 2.94 L (4.10-5.20) X 10*6/uL Hgb 8.8 L (12.0-15.0) g/dL Hct 28.0 L (37.2-46.3) % MCHC 31.4 L (32.0-37.0) g/dL Immature Gran # 0.07 H (0.00-0.04) X 10*3/uL Microbiology - Last 24 Hours (Table) 01/12/24 17:01 Gram Stain - Preliminary Abdomen Wound Culture - Preliminary Gram Neg Bacilli 01/11/24 12:00 Gram Stain - Final Abdomen Wound Culture - Final Pseudomonas aeruginosa Klebsiella oxytoca
--- NOTE | 2024-01-15 03:52 | P.PN ---
Progress Note - Text Progress Note Date: 01/15/24 CHIEF COMPLAINT: Perforated colon HISTORY OF PRESENT ILLNESS: Patient is postop day #6 status post laparoscopy converted to open ileocecectomy. Pain is controlled. Denies any nausea or vomiting. She is having bowel function. PHYSICAL EXAM: VITAL SIGNS: Reviewed. GENERAL: Well-developed in no acute distress. ABDOMEN: Soft. Nondistended. Midline incision decrease drainage noted. Drainage is purulent on dressing no erythema. NEUROLOGIC: Alert and oriented. Cranial nerves II through XII grossly intact. ASSESSMENT: 1. Acute appendicitis with perforation and abscess. Status post open ileocecectomy 2. Intra-abdominal infection PLAN: -Low Fiber Diet -Infectious disease recommending IV antibiotics at discharge. strategic alliances manager working on arranging IV antibiotics -PICC line placement for home IV antibiotics -Continue pain management -Encourage patient to ambulate -DVT prophylaxis Yobany Andersen DO [facility] [phone]
[2024-01-15 09:51] LABS: Blood Urea Nitrogen 5.4 mg/dL (9.0-27.0); Carbon Dioxide 23.2 mmol/L (21.6-31.8); Chloride 107 mmol/L (96-109); Glucose 93 mg/dL (70-110); Potassium 3.5 mmol/L (3.5-5.5); Sodium 141 mmol/L (135-145)
[2024-01-15 09:56] LABS: Basophils # (A) 0.03 X 10*3/uL (0.00-0.10); Basophils % (A) 0.3 %; Eosinophils # (A) 0.12 X 10*3/uL (0.04-0.35); Eosinophils % (A) 1.4 %; HCT 29.5 % (37.2-46.3); HGB 9.6 g/dL (12.0-15.0); Lymphocytes # (A) 1.86 X 10*3/uL (0.90-5.00); Lymphocytes % (A) 21.2 %; MCH 30.1 pg (27.0-32.0); MCHC 32.5 g/dL (32.0-37.0); MCV 92.5 FL (80.0-97.0); Mean Platelet Volume 10.4 FL (9.5-12.2); NRBC Per 100 WBC 0 X 10*3/uL (0.00-0.01); Neutrophils # (A) 5.97 X 10*3/uL (1.80-7.70); Platelet Count 448 X 10*3/uL (140-440); RBC 3.19 X 10*6/uL (4.10-5.20); RDW 12.9 % (11.5-14.5); WBC 8.78 X 10*3/uL (4.50-10.00)
--- NOTE | 2024-01-16 08:24 | P.PN ---
Progress Note - Text Progress Note Date: 01/16/24 HISTORY OF PRESENT ILLNESS: Patient is postop day #7 status post laparoscopy converted to open ileocecectomy. Pain is controlled. Denies any nausea or vomiting. She is having bowel function. She is having drainage from her midline incision. PHYSICAL EXAM: VITAL SIGNS: Reviewed. GENERAL: Well-developed in no acute distress. ABDOMEN: Soft. Nondistended. Midline incision decrease drainage noted. Drainage is purulent on dressing no erythema. NEUROLOGIC: Alert and oriented. Cranial nerves II through XII grossly intact. ASSESSMENT: 1. Acute appendicitis with perforation and abscess. Status post open ileocecectomy 2. Intra-abdominal infection PLAN: -Low Fiber Diet -Infectious disease recommending IV antibiotics at discharge. research manager working on arranging IV antibiotics -IR PICC line placement for home IV antibiotics pending -Continue pain management -Encourage patient to ambulate -DVT prophylaxis Yobany Andersen DO [facility] [phone]
--- NOTE | 2024-01-16 16:10 | P.PN ---
Subjective Progress Note Date: 01/15/24 Principal diagnosis: Reason for follow-up is perforated appendicitis intra-abdominal abscess Patient is a 48-year-old female with no significant past medical history presenting to the hospital for evaluation of abdominal pain has been diagnosed with perforated appendicitis intra-abdominal abscess status post open ileocecectomy abdominal culture grew Klebsiella with subsequent culture growing Pseudomonas as well probably this consultation. On today's evaluation that is 01/15/2024, Patient is afebrile this morning patient denies having any chest pain shortness of breath or cough, the patient is currently on room air, patient still complaining of lower abdominal pain but denies any worsening no nausea vomiting did have bowel movement. Patient white count is 8.78, creatinine 0.5 Objective - Vital Signs Vital signs: Vital Signs Temp 97.8 F 01/15/24 12:59 Pulse 68 01/15/24 12:59 Resp 18 01/15/24 12:59 BP 153/86 01/15/24 12:59 Pulse Ox 99 01/15/24 12:59 FiO2 Intake & Output 01/15/24 01/15/24 01/16/24 06:59 18:59 06:59 Output Total 60 240 Balance -60 -240 Output: Drainage 60 240 Abdomen 60 240 Other: Voiding Method Toilet Toilet # Voids 4 - Exam GENERAL DESCRIPTION: Middle-age female lying in bed in no distress RESPIRATORY SYSTEM: Unlabored breathing , decreased breath sounds at bases HEART: S1 S2 regular rate and rhythm , ABDOMEN: Soft , mild distention less drainage of the dressing EXTREMITIES: No edema feet - Labs CBC & Chem 7: 01/15/24 05:14 01/15/24 05:14 Labs: Abnormal Lab Results - Last 24 Hours (Table) 01/15/24 01/15/24 Range/Units 05:14 05:14 RBC 3.19 L (4.10-5.20) X 10*6/uL Hgb 9.6 L (12.0-15.0) g/dL Hct 29.5 L (37.2-46.3) % Plt Count 448 H (140-440) X 10*3/uL Immature Gran # 0.10 H (0.00-0.04) X 10*3/uL BUN 5.4 L (9.0-27.0) mg/dL Creatinine 0.5 L (0.6-1.5) mg/dL BUN/Creatinine Ratio 10.80 L (12.00-20.00) Ratio Calcium 8.0 L (8.7-10.3) mg/dL Microbiology - Last 24 Hours (Table) 01/12/24 17:01 Anaerobic Culture - Final Abdomen Bacteroides fragilis Group 01/12/24 17:01 Gram Stain - Preliminary Abdomen Wound Culture - Preliminary Klebsiella oxytoca Pseudomonas aeruginosa Assessment and Plan (1) Sepsis Current Visit: Yes Status: Acute Code(s): A41.9 - SEPSIS, UNSPECIFIED ORGANISM SNOMED Code(s): 96795808 (2) Perforated appendicitis Current Visit: Yes Status: Acute Code(s): K35.32 - AC APPENDICITIS W PERF, LOC PERITONITIS, & GANGR, W/O ABSCS SNOMED Code(s): 29306695 (3) Leukocytosis Current Visit: Yes Status: Acute Code(s): D72.829 - ELEVATED WHITE BLOOD CELL COUNT, UNSPECIFIED SNOMED Code(s): 053725691 (4) Intra-abdominal abscess Current Visit: Yes Status: Acute Code(s): K65.1 - PERITONEAL ABSCESS SNOMED Code(s): 43441519 (5) Pseudomonas aeruginosa infection Current Visit: Yes Status: Acute Code(s): A49.8 - OTHER BACTERIAL INFECTIONS OF UNSPECIFIED SITE SNOMED Code(s): 52352587 Plan: 1patient presented to hospital with sepsis in this patient who did have a fever tachycardia elevated white count meeting criteria for SIRS source is perforated appendicitis with intra-abdominal abscess with intra-abdominal culture growing Klebsiella subsequently did have some purulent drainage from abdominal incision those are growing Pseudomonas in addition to Klebsiella. 2 patient did have perforated appendicitis with gross stool in the abdomen and did have an abscess that was drained still having purulent drainage it would be better to continue with the course of IV antibiotic on discharge at the same time the patient is on Cymbalta that is interacting with the Cipro only oral option we have for the Pseudomonas, currently waiting for PICC line placement 3-patient to continue with Zosyn Dictation was produced using [employer] dictation software. please excuse any grammatical, word or spelling errors. Time with Patient: Less than 30
--- NOTE | 2024-01-16 16:10 | P.PN ---
Subjective Progress Note Date: 01/16/24 Principal diagnosis: Reason for follow-up is perforated appendicitis intra-abdominal abscess Patient is a 48-year-old female with no significant past medical history presenting to the hospital for evaluation of abdominal pain has been diagnosed with perforated appendicitis intra-abdominal abscess status post open ileocecectomy abdominal culture grew Klebsiella with subsequent culture growing Pseudomonas as well probably this consultation. On today's evaluation that is 01/16/2024,the patient denies any fever or any chills, patient is breathing comfortably on room air, the patient denies chest pain shortness of breath and no significant cough, patient with complaint of lower abdominal discomfort and did have drainage from incision denies any nausea vomiting or diarrhea. No new lab has been obtained today Objective - Vital Signs Vital signs: Vital Signs Temp 98.0 F 01/16/24 13:24 Pulse 78 01/16/24 13:24 Resp 16 01/16/24 13:24 BP 119/67 01/16/24 13:24 Pulse Ox 95 01/16/24 13:24 FiO2 Intake & Output 01/15/24 01/16/24 01/16/24 18:59 06:59 18:59 Intake Total 500 Output Total 240 20 20 Balance -240 -20 480 Weight 51 kg Intake: Oral 500 Output: Drainage 240 20 20 Abdomen 240 20 20 Other: Voiding Method Toilet Toilet Toilet # Voids 4 - Exam GENERAL DESCRIPTION: Middle-age female lying in bed in no distress RESPIRATORY SYSTEM: Unlabored breathing , decreased breath sounds at bases HEART: S1 S2 regular rate and rhythm , ABDOMEN: Soft , mild distention less drainage of the dressing EXTREMITIES: No edema feet - Labs CBC & Chem 7: 01/15/24 05:14 01/15/24 05:14 Assessment and Plan (1) Sepsis Current Visit: Yes Status: Acute Code(s): A41.9 - SEPSIS, UNSPECIFIED ORGANISM SNOMED Code(s): 51661919 (2) Perforated appendicitis Current Visit: Yes Status: Acute Code(s): K35.32 - AC APPENDICITIS W PERF, LOC PERITONITIS, & GANGR, W/O ABSCS SNOMED Code(s): 57581969 (3) Leukocytosis Current Visit: Yes Status: Acute Code(s): D72.829 - ELEVATED WHITE BLOOD CELL COUNT, UNSPECIFIED SNOMED Code(s): 603144821 (4) Intra-abdominal abscess Current Visit: Yes Status: Acute Code(s): K65.1 - PERITONEAL ABSCESS SNOMED Code(s): 82577374 (5) Pseudomonas aeruginosa infection Current Visit: Yes Status: Acute Code(s): A49.8 - OTHER BACTERIAL INFECTIONS OF UNSPECIFIED SITE SNOMED Code(s): 06084513 Plan: 1patient presented to hospital with sepsis in this patient who did have a fever tachycardia elevated white count meeting criteria for SIRS source is perforated appendicitis with intra-abdominal abscess with intra-abdominal culture growing Klebsiella subsequently did have some purulent drainage from abdominal incision those are growing Pseudomonas in addition to Klebsiella. 2 patient did have perforated appendicitis with gross stool in the abdomen and did have an abscess that was drained still having purulent drainage it would be better to continue with the course of IV antibiotic on discharge at the same time the patient is on Cymbalta that is interacting with the Cipro only oral option we have for the Pseudomonas, patient is currently waiting for PICC line placement and outpatient IV antibiotic arrangement and is currently being treated with Zosyn to continue Dictation was produced using [employer] dictation software. please excuse any grammatical, word or spelling errors. Time with Patient: Less than 30
[2024-01-17 08:42] LABS: Blood Urea Nitrogen 4.2 mg/dL (9.0-27.0); Carbon Dioxide 23.7 mmol/L (21.6-31.8); Chloride 108 mmol/L (96-109); Glucose 99 mg/dL (70-110); Potassium 3.5 mmol/L (3.5-5.5); Sodium 143 mmol/L (135-145)
[2024-01-17 08:43] LABS: Basophils # (A) 0.03 X 10*3/uL (0.00-0.10); Basophils % (A) 0.4 %; Calcium 8.1 mg/dL (8.7-10.3); Eosinophils # (A) 0.15 X 10*3/uL (0.04-0.35); Eosinophils % (A) 1.8 %; HCT 29.6 % (37.2-46.3); HGB 9.4 g/dL (12.0-15.0); Lymphocytes # (A) 1.84 X 10*3/uL (0.90-5.00); Lymphocytes % (A) 21.8 %; MCH 30.4 pg (27.0-32.0); MCHC 31.8 g/dL (32.0-37.0); MCV 95.8 FL (80.0-97.0); Mean Platelet Volume 11.2 FL (9.5-12.2); Monocytes # (A) 0.61 X 10*3/uL (0.20-1.00); Monocytes % (A) 7.2 %; NRBC Per 100 WBC 0 X 10*3/uL (0.00-0.01); Neutrophils # (A) 5.73 X 10*3/uL (1.80-7.70); Neutrophils % (A) 67.7 %; Platelet Count 434 X 10*3/uL (140-440); RBC 3.09 X 10*6/uL (4.10-5.20); RDW 13.4 % (11.5-14.5); WBC 8.45 X 10*3/uL (4.50-10.00)
--- NOTE | 2024-01-17 12:04 | P.DS ---
Providers Date of admission: 01/08/24 14:53 Expected date of discharge: 01/17/24 Attending physician: Quintin Alston DO Consults: 01/13/24 11:05 Consult Physician Routine Consulting Provider: Lore Villareal Consult Reason/Comments: abdominal infection Do you want consulting provider notified?: Yes Primary care physician: Physician Nonstaff Hospital Course: Discharge diagnosis 1. Acute appendicitis with perforation and abscess. Status post open ileocecectomy 2. Intra-abdominal infection Hospital course This is a 48-year-old female who presented with abdominal pain from [facility]. CAT scan that indicated she had acute appendicitis and a questionable small abscess. Patient is status post open ileocecectomy for an acute appendicitis with perforation and abscess. Patient did have drainage from her incision site during this admission. 2 mary removed. The drainage has decreased and is minimal to 0 drainage. LAURA drain output is also starting to clear and is less purulent. Patient's pain is controlled. She is tolerating diet. She is having bowel movements. She is afebrile. She has been up ambulating. Patient will be discharged with LAURA drain and IV antibiotics. Patient is stable for discharge. Please refer to chart for any further details. Physician Ruffler note has been reviewed by physician. Signing provider agrees with the documented findings, assessment, and plan of care. Attestation Patient with acute appendicitis with perforation and abscess formation status post open ileocecectomy. Patient did have drainage from incision site during admission and surgical wound was treated with IV antibiotics. LAURA drain output is more serosanguineous at this point. She is tolerating diet and having bowel function. She is surgically stable for doischarge with followup as outpatient. Maribeth Katz DO Patient Condition at Discharge: Stable Plan - Discharge Summary Discharge Rx Participant: Yes New Discharge Prescriptions: New HYDROcodone/APAP 10-325MG [Bartley 10-325] 1 tab PO Q6HR PRN 7 Days #28 tab PRN Reason: Pain Continue lisinopriL [Zestril] 5 mg PO DAILY DULoxetine HCL [Cymbalta] 60 mg PO DAILY Atorvastatin [Lipitor] 10 mg PO DAILY metFORMIN HCL [Glucophage] 500 mg PO DAILY Metoprolol Succinate [Metoprolol Succinate ER] 25 mg PO DAILY Discharge Medication List Atorvastatin [Lipitor] 10 mg PO DAILY 01/08/24 [History] DULoxetine HCL [Cymbalta] 60 mg PO DAILY 01/08/24 [History] Metoprolol Succinate [Metoprolol Succinate ER] 25 mg PO DAILY 01/08/24 [History] lisinopriL [Zestril] 5 mg PO DAILY 01/08/24 [History] metFORMIN HCL [Glucophage] 500 mg PO DAILY 01/08/24 [History] HYDROcodone/APAP 10-325MG [Bartley 10-325] 1 tab PO Q6HR PRN 7 Days #28 tab 01/14/24 [Rx] Follow up Appointment(s)/Referral(s): CT,Scan [Other] - 01/31/24 9:00 am (Please arrive at patient check in @ 9AM on WednesdayJanuary 30.) Quintin Alston DO [Doctor of Osteopathic Medicine] - 01/25/24 9:45 am [facility], [NON-STAFF] - 1-2 Days ([facility] will call you to schedule your in home nursing visits to begin IV antibiotic teaching. Your first visit will be tomorrow. ) Nonstaff,Physician [Primary Care Provider] - 1-2 days [facility], [REFERRING] - As Needed ([facility] will delivery IV antibiotics and supplies to your house this evening between 6-8pm. ) Patient Instructions/Handouts: Cooper-Bledsoe Drain Care (DC), Open Appendectomy (DC), PICC (Peripherally Inserted Central Catheter) (DC) Activity/Diet/Wound Care/Special Instructions: IV antibiotics per infectious disease, Zosyn for 15 more days No driving while taking Bartley No lifting over 10 pounds You may shower. No soaking or tub baths for 2 weeks Very light activity until you are reevaluated at your follow up appointment with your surgeon Keep a log of LAURA drain output and bring with you to your follow-up appointment Milk/strip drains 2-3 times a day Discharge Disposition: HOME SELF-CARE
--- NOTE | 2024-01-17 12:05 | P.PN ---
Subjective Progress Note Date: 01/17/24 Principal diagnosis: Reason for follow-up is perforated appendicitis intra-abdominal abscess Patient is a 48-year-old female with no significant past medical history presenting to the hospital for evaluation of abdominal pain has been diagnosed with perforated appendicitis intra-abdominal abscess status post open ileocecectomy abdominal culture grew Klebsiella with subsequent culture growing Pseudomonas as well probably this consultation. On today's evaluation that is 01/17/2024,the patient remains to be afebrile, patient is on room air not requiring supplemental oxygen and denies any shortness of breath no chest pain or cough.Patient denies having any nausea or vomiting, abdominal pain is currently controlled. Patient white count is 8.45, creatinine 0.5 abdominal culture with Klebsiella Pseudomonas and E. coli and bacteroids Objective - Vital Signs Vital signs: Vital Signs Temp 97.0 F L 01/17/24 07:00 Pulse 70 01/17/24 07:00 Resp 17 01/17/24 07:00 BP 127/62 01/17/24 07:00 Pulse Ox 97 01/17/24 09:12 FiO2 Intake & Output 01/16/24 01/17/24 01/17/24 18:59 06:59 18:59 Intake Total 500 Output Total 40 30 Balance 460 -30 Intake: Oral 500 Output: Drainage 40 30 Abdomen 40 30 Other: Voiding Method Toilet Toilet # Voids 5 3 - Exam GENERAL DESCRIPTION: Middle-age female lying in bed in no distress RESPIRATORY SYSTEM: Unlabored breathing , decreased breath sounds at bases HEART: S1 S2 regular rate and rhythm , ABDOMEN: Soft , mild distention less drainage of the dressing EXTREMITIES: No edema feet - Labs CBC & Chem 7: 01/17/24 03:58 01/17/24 03:58 Labs: Abnormal Lab Results - Last 24 Hours (Table) 01/17/24 01/17/24 Range/Units 03:58 03:58 RBC 3.09 L (4.10-5.20) X 10*6/uL Hgb 9.4 L (12.0-15.0) g/dL Hct 29.6 L (37.2-46.3) % MCHC 31.8 L (32.0-37.0) g/dL Immature Gran # 0.09 H (0.00-0.04) X 10*3/uL BUN 4.2 L (9.0-27.0) mg/dL Creatinine 0.5 L (0.6-1.5) mg/dL BUN/Creatinine Ratio 8.40 L (12.00-20.00) Ratio Calcium 8.1 L (8.7-10.3) mg/dL Microbiology - Last 24 Hours (Table) 01/12/24 17:01 Gram Stain - Final Abdomen Wound Culture - Final Klebsiella oxytoca Pseudomonas aeruginosa Escherichia coli Assessment and Plan (1) Sepsis Current Visit: Yes Status: Acute Code(s): A41.9 - SEPSIS, UNSPECIFIED ORGANISM SNOMED Code(s): 92803980 (2) Perforated appendicitis Current Visit: Yes Status: Acute Code(s): K35.32 - AC APPENDICITIS W PERF, LOC PERITONITIS, & GANGR, W/O ABSCS SNOMED Code(s): 47914980 (3) Leukocytosis Current Visit: Yes Status: Acute Code(s): D72.829 - ELEVATED WHITE BLOOD CELL COUNT, UNSPECIFIED SNOMED Code(s): 929684928 (4) Intra-abdominal abscess Current Visit: Yes Status: Acute Code(s): K65.1 - PERITONEAL ABSCESS SNOMED Code(s): 51430763 (5) Pseudomonas aeruginosa infection Current Visit: Yes Status: Acute Code(s): A49.8 - OTHER BACTERIAL INFECTIONS OF UNSPECIFIED SITE SNOMED Code(s): 99163178 Plan: 1patient presented to hospital with sepsis in this patient who did have a fever tachycardia elevated white count meeting criteria for SIRS source is perforated appendicitis with intra-abdominal abscess with intra-abdominal culture growing Klebsiella subsequently did have some purulent drainage from abdominal incision those are growing Pseudomonas in addition to Klebsiella. 2 patient did have perforated appendicitis with gross stool in the abdomen and did have an abscess that was drained still having purulent drainage it would be better to continue with the course of IV antibiotic on discharge at the same time the patient is on Cymbalta that is interacting with the Cipro only oral option we have for the Pseudomonas, 3-patient will have a PICC line placement this morning Zosyn prescription has been provided to the pillowcase sewer once arranged she will be able to go home from ID standpoint plan is for repeat CAT scan on January 30 before completion of her antibiotic therapy to make sure complete resolution of the abscess before discontinuation of antibiotic Dictation was produced using [employer] dictation software. please excuse any grammatical, word or spelling errors.
[2024-01-17 14:24] VITALS: BP 120/56; PULSE 77; RESP 16; TEMP 98.1
--- NOTE | 2024-01-19 21:18 | CDI ---
Documentation Clarification Form Date: 01/19/2024 09:06:01 PM From: Pilar Jules Phone: Admit Date: 01/08/2024 02:53:00 PM Patient Name: Elham Seth Visit Number: [id number] Discharge Date: 01/17/2024 03:58:00 PM ATTENTION: The Clinical Documentation Specialists (CDI) and [facility] Coding Staff appreciate your assistance in clarifying documentation. Please respond to the clarification below the line at the bottom and electronically sign. The CDI & [facility] Coding staff will review the response and follow-up if needed. Please note: Queries are made part of the Legal Health Record. If you have any questions, please contact the author of this message via ITS. Doctor/Provider: Ayesha Arechiga Unspecified anemia is documented Progress Note 01/10. Additional specificity regarding the type of anemia is requested. History/Risk Factors: 48yo F, sepsisd/t Klebsiella&Pseudomonas, acute appendicitis with perforation and abscess sp open ileocecectomy Clinical indicators: Hb/11 11.6 01/10 9.4 01/11 9.3 01/12 8.6 01/13 8.8- 7.69 01/14 9.6 Hct: 01/10 30.5 01/11 29.6 01/12 28.2 01/13 28.0 01/14 29.5 Treatment: monitored Please clarify the type and acuity of anemia: [x ] Acute blood loss anemia [ ] Acute on chronic blood loss anemia [ ] Unable to determine [ ] Other, please specify (Template Last Revised: April 2020) MTDD
== END 2024-01-17 15:58 | disposition home or self-care (01) | DRG 231 ==
LOC: EC 14:14 → 5NMEDONC 14:53 → 4SSUR 16:17
PROVIDERS: ADMIT Surgery; ATTEND Surgery
PROC: 0DTH0ZZ Resection of Cecum, Open Approach (ICD-10-PCS; principal; 2024-01-09 09:00)
PROC: 02HV33Z Insertion of Infusion Device into Superior Vena Cava, Percutaneous Approach (ICD-10-PCS; 2024-01-17)
DX: K35.33 Acute appendicitis with perforation, localized peritonitis, and gangrene, with abscess (principal); A41.52 Sepsis due to Pseudomonas; K63.1 Perforation of intestine (nontraumatic); T81.41XA Infection following a procedure, superficial incisional surgical site, initial encounter; D62 Acute posthemorrhagic anemia; Z53.31 Laparoscopic surgical procedure converted to open procedure; B96.1 Klebsiella pneumoniae [K. pneumoniae] as the cause of diseases classified elsewhere; Z79.84 Long term (current) use of oral hypoglycemic drugs; Z79.899 Other long term (current) drug therapy
CPT/HCPCS: 36573; 80048; 81001; 85025; 85610; 86850; 86900; 86901; 87070; 87075; 87077; 87186; 87205; 88307; 94760; 96374; 99285

== ENCOUNTER → 2024-02-07 | Outpatient (CLI) | payer OTHER ==
[2024-02-07 15:32] LABS: African American GFR (CKD) >90 (>60 ml/min/1.73 sqM); Blood Urea Nitrogen 16 mg/dL (7-17); Non-African American GFR(CKD) >90 (>60 ml/min/1.73 sqM)
--- NOTE | 2024-02-07 18:23 | CT ---
EXAMINATION TYPE: CT abdomen pelvis w con DATE OF EXAM: 02/07/2024 4:52 PM COMPARISON: CT abdomen pelvis most recent from 01/08/2024 CLINICAL INDICATION: Female, 48 years old with history of INTRA ABDOMINAL ABCESS; appendix and colon ruptured x 3 weeks ago. post surgical follow up TECHNIQUE: Axial CT abdomen pelvis w con;Sagittal and coronal reformats were created on a separate w orkstation. Contrast used:100 mL of Isovue 300 with IV Contrast, (none if empty) Oral contrast used: with Oral Contrast (none if empty) CT DLP: 1695.7 mGycm, Automated exposure control for dose reduction was used. FINDINGS: LOWER CHEST: Unremarkable ABDOMEN LIVER: Unremarkable GALLBLADDER AND BILE DUCTS: Unremarkable. PANCREAS: Unremarkable. SPLEEN: Unremarkable. ADRENAL GLANDS: Stable left adrenal 14 mm nodule. KIDNEYS AND URETERS: No evidence of hydronephrosis or renal calculus. The ureters are unremarkable. PELVIS BLADDER: No evidence for wall thickening or mass given limitations of exam. REPRODUCTIVE: The uterus is surgically absent. ABDOMEN & PELVIS STOMACH AND BOWEL: No evidence of bowel obstruction. Postsurgical changes of the right colon no evide nce for organizing fluid collection. PERITONEUM/RETROPERITONEUM: No abscess within the abdomen. No evidence of pneumoperitoneum or free fl uid. Soft tissue near the surgical bed measuring 15 x 17 x 24 mm series 9 image 37 and series 8 image 49 possibly representing postsurgical change. VASCULATURE: No evidence of aortic aneurysm. MUSCULOSKELETAL: No acute osseous abnormalities LYMPH NODES: No gross evidence for lymphadenopathy. SOFT TISSUE/ABDOMINAL WALL: There is a heterogenous fluid collection along the anterior abdominal wal l subcutaneous tissues near midline with foci of gas measuring up to 13.0 cm x 3.0 cm x 1.2 cm. IMPRESSION: 1. Fluid collection thought to be along the anterior abdominal wall surgical site extending at least 13 cm with foci of gas. Further evaluation and evaluation for infection such as abscess recommended consideration for aspiration and drainage with ultrasound guidance should be considered. 2. Postsurgical changes in the abdomen without evidence for organizing fluid collection in the abdom en. There is soft tissue density in the right surgical bed likely representing postsurgical change/sc arring. A Vance level critical message alert has been initiated for Lore Villareal MD via the [employer] Critical Results System on 02/07/2024 6:19 PM. This message alert has been sent to Estrella Kendrick via the preferences provided by the clinician for the receipt of Radiology Critical Findings. Klip.in ID [id number]. [facility], , 02/07/2024 6:21 PM
== END | disposition home or self-care (01) ==
LOC: RADCTMAIN 14:38
PROVIDERS: ATTEND Internal Medicine Infectious Disease
DX: R19.09 Other intra-abdominal and pelvic swelling, mass and lump (principal); Z90.49 Acquired absence of other specified parts of digestive tract
CPT/HCPCS: 82565; 84520; 74177; 36415; Q9967

== ENCOUNTER 2024-02-09 07:25 | Inpatient (IN) | payer OTHER ==
--- NOTE | 2024-02-09 08:09 | ED ---
General Adult HPI - General Chief complaint: Skin/Abscess/Foreign Body Stated complaint: ABN labs Time Seen by Provider: 02/09/24 07:37 Source: patient, RN notes reviewed, old records reviewed Mode of arrival: ambulatory Limitations: no limitations - History of Present Illness Initial comments: 48-year-old female presenting for evaluation of abnormal outpatient CT. Patient is currently on IV antibiotics through PICC line for intra-abdominal infection after perforated appendicitis. Patient had a laparotomy on January 08. She has been followed by infectious disease and received a CT scan of the abdomen 2 days prior which she was informed today that showed a fluid collection concerning for abscess. She was sent to the emergency department for evaluation. Patient states she feels quite well and has been doing good. No fevers. No significant abdominal pain. - Related Data Home Medications Medication Instructions Recorded Confirmed Atorvastatin [Lipitor] 10 mg PO DAILY 01/08/24 01/08/24 DULoxetine HCL [Cymbalta] 60 mg PO DAILY 01/08/24 01/08/24 Metoprolol Succinate [Metoprolol 25 mg PO DAILY 01/08/24 01/08/24 Succinate ER] lisinopriL [Zestril] 5 mg PO DAILY 01/08/24 01/08/24 metFORMIN HCL [Glucophage] 500 mg PO DAILY 01/08/24 01/08/24 Previous Rx's Medication Instructions Recorded HYDROcodone/APAP 10-325MG [[place] 1 tab PO Q6HR PRN 7 Days #28 tab 01/14/24 10-325] Allergies Allergy/AdvReac Type Severity Reaction Status Date / Time No Known Allergies Allergy Verified 02/09/24 07:26 Review of Systems ROS Statement: Those systems with pertinent positive or pertinent negative responses have been documented in the HPI. ROS Other: All systems not noted in ROS Statement are negative. Past Medical History Past Medical History: Diabetes Mellitus, Hyperlipidemia, Hypertension History of Any Multi-Drug Resistant Organisms: None Reported Past Surgical History: Appendectomy Additional Past Surgical History / Comment(s): partial hysterectomy Smoking Status: Current every day smoker General Exam Limitations: no limitations General appearance: alert, in no apparent distress Head exam: Present: atraumatic, normocephalic Eye exam: Present: normal appearance, PERRL ENT exam: Present: normal exam Neck exam: Present: normal inspection. Absent: tenderness, meningismus Respiratory exam: Present: normal lung sounds bilaterally. Absent: respiratory distress, wheezes Cardiovascular Exam: Present: regular rate, normal rhythm GI/Abdominal exam: Present: soft, other (Surgical incision is well-healed). Absent: distended, tenderness Extremities exam: Present: normal inspection, normal capillary refill Neurological exam: Present: alert, oriented X3 Psychiatric exam: Present: normal affect, normal mood Skin exam: Present: warm, dry, intact Course Vital Signs 02/09/24 07:26 Temperature 97.9 F Pulse Rate 88 Respiratory 18 Rate Blood Pressure 140/85 O2 Sat by Pulse 100 Oximetry Medical Decision Making - Medical Decision Making Was pt. sent in by a medical professional or institution (, PA, SUPPLY AIDE, urgent care, hospital, or usp...) When possible be specific @ -No Did you speak to anyone other than the patient for history (EMS, parent, family, police, friend...)? What history was obtained from this source @ -No Did you review nursing and triage notes (agree or disagree)? Why? @ -I reviewed and agree with nursing and triage notes Were old charts reviewed (outside hosp., previous admission, EMS record, old EKG, old radiological studies, urgent care reports/EKG's, usp records)? Report findings @ -No old charts were reviewed Differential Diagnosis: Postoperative abdominal wall abscess, vs seroma EKG interpreted by me (3pts min.). @ -As above X-rays interpreted by me (1pt min.). @ -None done CT interpreted by me (1pt min.). @ -[CT from 2 days prior reviewed, abdominal wall fluid collection with soft tissue gas U/S interpreted by me (1pt. min.). @ -None done What testing was considered but not performed or refused? (CT, X-rays, U/S, labs)? Why? @ -None What meds were considered but not given or refused? Why? @ -None Did you discuss the management of the patient with other professionals (amisha luther i.e. , CARMEN, SUPPLY AIDE, lab, RT, psych nurse, psychotherapist social worker, recapper, teacher, motorized squad commanding officer, hospice case manager)? Give summary @ -Case discussed with Dr. Ramirez who will admit, Dr. Katz covering for Dr. Estrella lucas Was smoking cessation discussed for >3mins.? @ -No Was critical care preformed (if so, how long)? @ -No Were there social determinants of health that impacted care today? How? (Homelessness, low income, unemployed, alcoholism, drug addiction, transportation, low edu. Level, literacy, decrease access to med. care, [facility], rehab)? @ -No Was there de-escalation of care discussed even if they declined (Discuss DNR or withdrawal of care, Hospice)? DNR status @ -No What co-morbidities impacted this encounter? (DM, HTN, Smoking, COPD, CAD, Cancer, CVA, ARF, Chemo, Hep., AIDS, mental health diagnosis, sleep apnea, morbid obesity)? @ -Recent laparotomy secondary to perforated appendix Was patient admitted / discharged? Hospital course, mention meds given and route, prescriptions, significant lab abnormalities, going to OR and other pertinent info. @ -Laboratory testing unremarkable. Patient continued on Zosyn. Admitted for evaluation by infectious disease and general surgery. May require IR evaluation. Laboratory testing unremarkable. Undiagnosed new problem with uncertain prognosis? @ -No Drug Therapy requiring intensive monitoring for toxicity (Heparin, Nitro, Insulin, Cardizem)? @ -No Were any procedures done? @ -No Diagnosis/symptom? @ -Anterior abdominal wall fluid collection with subcutaneous gas, possible infection Acu[te, or Chronic, or Acute on Chronic? @Acute Uncomplicated (without systemic symptoms) or Complicated (systemic symptoms)? @ -Default Side effects of treatment? @ -No Exacerbation, Progression, or Severe Exacerbation? @ -No Poses a threat to life or bodily function? How? (Chest pain, [place], [place], pneumonia, PE, COPD, DKA, ARF, appy, cholecystitis, CVA, Diverticulitis, Homicidal, Suicidal, threat to staff... and all critical care pts) @ -[Yes, sepsis - Lab Data Result diagrams: 02/09/24 08:32 02/09/24 08:32 Lab Results 02/09/24 02/09/24 02/09/24 Range/Units 08:32 08:32 08:32 WBC 5.5 (3.8-10.6) k/uL RBC 4.15 (3.80-5.40) m/uL Hgb 12.3 (11.4-16.0) gm/dL Hct 38.8 (34.0-46.0) % MCV 93.5 (80.0-100.0) fL MCH 29.7 (25.0-35.0) pg MCHC 31.7 (31.0-37.0) g/dL RDW 13.8 (11.5-15.5) % Plt Count 318 (150-450) k/uL MPV 7.9 Neutrophils % 56 % Lymphocytes % 32 % Monocytes % 5 % Eosinophils % 4 % Basophils % 1 % Neutrophils # 3.1 (1.3-7.7) k/uL Lymphocytes # 1.8 (1.0-4.8) k/uL Monocytes # 0.3 (0-1.0) k/uL Eosinophils # 0.2 (0-0.7) k/uL Basophils # 0.0 (0-0.2) k/uL Hypochromasia Slight PT 10.2 (10.0-12.5) sec INR 0.9 (<1.2) APTT 24.8 (22.0-30.0) sec Sodium 140 (137-145) mmol/L Potassium 4.1 (3.5-5.1) mmol/L Chloride 108 H (98-107) mmol/L Carbon Dioxide 24 (22-30) mmol/L Anion Gap 8 mmol/L BUN 11 (7-17) mg/dL Creatinine 0.60 (0.52-1.04) mg/dL Est GFR (CKD-EPI)AfAm >90 (>60 ml/min/1.73 sqM) Est GFR (CKD-EPI)NonAf >90 (>60 ml/min/1.73 sqM) Glucose 106 H (74-99) mg/dL Plasma Lactic Acid Miguel A (0.7-2.0) mmol/L Calcium 9.6 (8.4-10.2) mg/dL Total Bilirubin 0.3 (0.2-1.3) mg/dL AST 24 (14-36) U/L ALT 22 (4-34) U/L Alkaline Phosphatase 89 (38-126) U/L Total Protein 6.4 (6.3-8.2) g/dL Albumin 4.0 (3.5-5.0) g/dL 02/09/24 Range/Units 08:32 WBC (3.8-10.6) k/uL RBC (3.80-5.40) m/uL Hgb (11.4-16.0) gm/dL Hct (34.0-46.0) % MCV (80.0-100.0) fL MCH (25.0-35.0) pg MCHC (31.0-37.0) g/dL RDW (11.5-15.5) % Plt Count (150-450) k/uL MPV Neutrophils % % Lymphocytes % % Monocytes % % Eosinophils % % Basophils % % Neutrophils # (1.3-7.7) k/uL Lymphocytes # (1.0-4.8) k/uL Monocytes # (0-1.0) k/uL Eosinophils # (0-0.7) k/uL Basophils # (0-0.2) k/uL Hypochromasia PT (10.0-12.5) sec INR (<1.2) APTT (22.0-30.0) sec Sodium (137-145) mmol/L Potassium (3.5-5.1) mmol/L Chloride (98-107) mmol/L Carbon Dioxide (22-30) mmol/L Anion Gap mmol/L BUN (7-17) mg/dL Creatinine (0.52-1.04) mg/dL Est GFR (CKD-EPI)AfAm (>60 ml/min/1.73 sqM) Est GFR (CKD-EPI)NonAf (>60 ml/min/1.73 sqM) Glucose (74-99) mg/dL Plasma Lactic Acid Miguel A 1.4 (0.7-2.0) mmol/L Calcium (8.4-10.2) mg/dL Total Bilirubin (0.2-1.3) mg/dL AST (14-36) U/L ALT (4-34) U/L Alkaline Phosphatase (38-126) U/L Total Protein (6.3-8.2) g/dL Albumin (3.5-5.0) g/dL Disposition Clinical Impression: Abdominal wall abscess Disposition: ADMITTED IP TO THIS [facility] Condition: Stable Is patient prescribed a controlled substance at d/c from ED?: No Referrals: None,Stated [Primary Care Provider] - 1-2 days Time of Disposition: 10:22
[2024-02-09 08:51] LABS: Basophils % (A) 1 %; Eosinophils # (A) 0.2 k/uL (0-0.7); Eosinophils % (A) 4 %; HCT 38.8 % (34.0-46.0); HGB 12.3 gm/dL (11.4-16.0); Hypochromasia Slight; Lymphocytes # (A) 1.8 k/uL (1.0-4.8); Lymphocytes % (A) 32 %; MCH 29.7 pg (25.0-35.0); MCHC 31.7 g/dL (31.0-37.0); MCV 93.5 fL (80.0-100.0); Mean Platelet Volume 7.9; Monocytes # (A) 0.3 k/uL (0-1.0); Monocytes % (A) 5 %; Neutrophils # (A) 3.1 k/uL (1.3-7.7); Neutrophils % (A) 56 %; Platelet Count 318 k/uL (150-450); RBC 4.15 m/uL (3.80-5.40); RDW 13.8 % (11.5-15.5); WBC 5.5 k/uL (3.8-10.6)
[2024-02-09 09:03] LABS: INR 0.9 (<1.2); Partial Thromboplastin Time 24.8 sec (22.0-30.0); Prothrombin Time 10.2 sec (10.0-12.5)
[2024-02-09 09:29] LABS: ALT 22 U/L (4-34); AST 24 U/L (14-36); African American GFR (CKD) >90 (>60 ml/min/1.73 sqM); Alkaline Phosphatase 89 U/L (38-126); Anion Gap 8 mmol/L; Blood Urea Nitrogen 11 mg/dL (7-17); Calcium 9.6 mg/dL (8.4-10.2); Carbon Dioxide 24 mmol/L (22-30); Chloride 108 mmol/L (98-107); Glucose 106 mg/dL (74-99); Non-African American GFR(CKD) >90 (>60 ml/min/1.73 sqM); Potassium 4.1 mmol/L (3.5-5.1); Sodium 140 mmol/L (137-145); Total Bilirubin 0.3 mg/dL (0.2-1.3); Total Protein 6.4 g/dL (6.3-8.2)
[2024-02-09] MEDS ORDERED: HYDROmorphone 0.5 MG/0.5 ML SYRINGE IVP PRN (10:19)
[2024-02-09] MEDS ORDERED: ACETAMINOPHEN TAB 325 MG TAB PO PRN (10:19)
[2024-02-09] MEDS ORDERED: NALOXONE 0.4 MG/ML 1 ML VIAL IV PRN (10:19)
[2024-02-09] MEDS: SODIUM CHLORIDE 0.9% 1,000 ML IV SCH (10:38)
[2024-02-09] MEDS: LORazepam 2 MG/ML INJ IV STA (10:38)
[2024-02-09 12:09] LABS: Appearance,Urine Clear (Clear); Bilirubin,Urine Negative (Negative); Blood,Urine Negative (Negative); Color,Urine Colorless; Glucose,Urine (UA) Negative (Negative); Ketones,Urine Negative (Negative); Leukocyte Esterase,Urine Large (Negative); Mucus,Urine Rare /hpf; Nitrite,Urine Negative (Negative); Protein,Urine Negative (Negative); RBC,Urine 2 /hpf (0-5); Squamous Epithelial Cell,Urine 2 /hpf (0-4); Urobilinogen,Urine <2.0 mg/dL (<2.0); WBC,Urine 24 /hpf (0-5)
[2024-02-09] MEDS: ALPRAZolam 0.5 MG TAB PO PRN (13:08)
[2024-02-09] MEDS: LORazepam 0.5 MG TAB PO PRN (14:06)
[2024-02-09] MEDS: DAPTOmycin 500 MG in SODIUM CHLORIDE 0.9% 50 ML IVPB SCH (14:06)
--- NOTE | 2024-02-09 14:16 | P.GSCN ---
History of Present Illness Consult date: 02/09/24 History of present illness: CHIEF COMPLAINT: Fluid collection on outpatient abdominal CAT scan HISTORY OF PRESENT ILLNESS: This is a 48-year-old female who is status post open ileocecectomy for perforated appendicitis with abscess on 01/09/2024. Patient had been on IV antibiotics in the outpatient setting. Patient reports that she has been doing well. She denies any abdominal pain. Denies any fever chills or sweats. Denies any nausea or vomiting. She had followed up with Dr. Villareal who ordered a repeat CT scan of the abdomen. CAT scan reported fluid collection thought to be along the anterior abdominal wall surgical site extending at least 13 cm with foci of gas. Further evaluation for infection such as abscess recommended consider aspiration and drainage. Patient's white count is normal at 5.5. Patient has had some drainage from the incision site at the distal part of the incision and at the umbilicus. PAST MEDICAL HISTORY: See below PAST SURGICAL HISTORY: See below MEDICATIONS: See below ALLERGIES: See below SOCIAL HISTORY: No illicit drug use. REVIEW OF SYSTEMS: CONSTITUTIONAL: Denies fever or chills. HEENT: Denies blurred vision, vision changes, or eye pain. Denies hemoptysis CARDIOVASCULAR: Denies chest pain or pressure. RESPIRATORY: No shortness of breath. GASTROINTESTINAL: See HPI for pertinent findings HEMATOLOGIC: Denies bleeding disorders. GENITOURINARY: Denies any blood in urine or increased urinary frequency. SKIN: Denies pruitis. Denies rash. PHYSICAL EXAM: VITAL SIGNS: Reviewed GENERAL: Well-developed in no acute distress. Very anxious HEENT: No sclera icterus. Extraocular movements grossly intact. Moist buccal mucosa. Head is atraumatic, normocephalic. No nasal drainage. ABDOMEN: Soft. Nondistended. Nontender. Midline incision with a hole at the umbilicus with some clearish drainage. Yellowish tissue is noted. Some clearish discharge from the distal aspect of the incision. NEUROLOGIC: Alert and oriented. Cranial nerves II through XII grossly intact. LABORATORY DATA: WBC is 5.5 Hgb 12.3 platelets 318 Sodium 140 potassium 4.1 creatinine 0.60 IMAGING: CT scan abdomen pelvis reports fluid collection thought to be along the anterior abdominal wall surgical site extending at least 13 cm with foci of gas. Postsurgical changes in the abdomen without evidence for organizing fluid collection in the abdomen. There is soft tissue density in the right surgical bed likely representing postsurgical changes/scarring. ASSESSMENT: 1. Anterior abdominal wall fluid collection noted on CAT scan 2. Status post recent open ileocecectomy for perforated appendicitis with abscess on 01/09/2024 PLAN: -Consult interventional radiology service for possible drain placement -Antibiotics per infectious disease -Advance diet to consistent carbohydrate diet Physician Litigation Examiner note has been reviewed by physician. Signing provider agrees with the documented findings, assessment, and plan of care. Attestation Patient sent by infectious disease secondary to CT scanning finding of anterior abdominal wall fluid collection. Per CT read by radiology, recommendation has been made for ultrasound-guided drainage of the fluid collection. Patient with no leukocytosis. No febrile episodes. I discussed the case with the patient with plan for ultrasound-guided drainage. IV antibiotics per infectious disease. Maribeth Katz DO Past Medical History Past Medical History: Diabetes Mellitus, Hyperlipidemia, Hypertension History of Any Multi-Drug Resistant Organisms: None Reported Past Surgical History: Appendectomy Additional Past Surgical History / Comment(s): partial hysterectomy, post op infection from [facility] in december 2023 but currently on out patient antibiotics through a picc line Smoking Status: Current every day smoker Medications and Allergies Home Medications Medication Instructions Recorded Confirmed Type Atorvastatin [Lipitor] 10 mg PO DAILY 01/08/24 02/09/24 History DULoxetine HCL [Cymbalta] 60 mg PO DAILY 01/08/24 02/09/24 History Metoprolol Succinate [Metoprolol 25 mg PO DAILY 01/08/24 02/09/24 History Succinate ER] lisinopriL [Zestril] 5 mg PO DAILY 01/08/24 02/09/24 History metFORMIN HCL [Glucophage] 500 mg PO DAILY 01/08/24 02/09/24 History Allergies Allergy/AdvReac Type Severity Reaction Status Date / Time No Known Allergies Allergy Verified 02/09/24 10:58 Surgical - Exam Osteopathic Statement: *. No significant issues noted on an osteopathic structural exam other than those noted in the History and Physical/Consult. Vital Signs Temp Pulse Resp BP Pulse Ox 97.9 F 88 18 140/85 100 02/09/24 07:26 02/09/24 07:26 02/09/24 07:26 02/09/24 07:26 02/09/24 07:26 Results - Labs 02/09/24 08:32 02/09/24 08:32 Abnormal Lab Results - Last 24 Hours (Table) 02/09/24 02/09/24 Range/Units 08:32 11:30 Chloride 108 H (98-107) mmol/L Glucose 106 H (74-99) mg/dL Ur Leukocyte Esterase Large H (Negative) Urine WBC 24 H (0-5) /hpf Urine Mucus Rare H (None) /hpf Diabetes panel 02/09/24 Range/Units 08:32 Sodium 140 (137-145) mmol/L Potassium 4.1 (3.5-5.1) mmol/L Chloride 108 H (98-107) mmol/L Carbon Dioxide 24 (22-30) mmol/L BUN 11 (7-17) mg/dL Creatinine 0.60 (0.52-1.04) mg/dL Glucose 106 H (74-99) mg/dL Calcium 9.6 (8.4-10.2) mg/dL AST 24 (14-36) U/L ALT 22 (4-34) U/L Alkaline Phosphatase 89 (38-126) U/L Total Protein 6.4 (6.3-8.2) g/dL Albumin 4.0 (3.5-5.0) g/dL Calcium panel 02/09/24 Range/Units 08:32 Calcium 9.6 (8.4-10.2) mg/dL Albumin 4.0 (3.5-5.0) g/dL Pituitary panel 02/09/24 Range/Units 08:32 Sodium 140 (137-145) mmol/L Potassium 4.1 (3.5-5.1) mmol/L Chloride 108 H (98-107) mmol/L Carbon Dioxide 24 (22-30) mmol/L BUN 11 (7-17) mg/dL Creatinine 0.60 (0.52-1.04) mg/dL Glucose 106 H (74-99) mg/dL Calcium 9.6 (8.4-10.2) mg/dL Adrenal panel 02/09/24 Range/Units 08:32 Sodium 140 (137-145) mmol/L Potassium 4.1 (3.5-5.1) mmol/L Chloride 108 H (98-107) mmol/L Carbon Dioxide 24 (22-30) mmol/L BUN 11 (7-17) mg/dL Creatinine 0.60 (0.52-1.04) mg/dL Glucose 106 H (74-99) mg/dL Calcium 9.6 (8.4-10.2) mg/dL Total Bilirubin 0.3 (0.2-1.3) mg/dL AST 24 (14-36) U/L ALT 22 (4-34) U/L Alkaline Phosphatase 89 (38-126) U/L Total Protein 6.4 (6.3-8.2) g/dL Albumin 4.0 (3.5-5.0) g/dL
[2024-02-09] MEDS ORDERED: DEXTROSE 50% SYRINGE 50 ML IVP PRN ×2 (15:43)
[2024-02-09] MEDS: PIPERACILLIN-TAZOBACTAM 3.375 GM in SODIUM CHLORIDE 0.9% 100 ML IVPB SCH (16:01)
[2024-02-09] MEDS: INSULIN ASPART (NovoLOG) 100 UNIT/ML VIAL SQ SCH (17:08)
[2024-02-09] MEDS: lisinopriL 5 MG TAB PO STA (17:18)
[2024-02-09] MEDS: ATORVASTATIN 10 MG TAB PO STA (17:18)
[2024-02-09] MEDS: DULoxetine HCL 60 MG CAPSULE.DR PO STA (17:18)
[2024-02-09] MEDS: metFORMIN 500 MG TAB PO STA (17:18)
[2024-02-09] MEDS: METOPROLOL SUCCINATE (ER) 25 MG TAB.ER.24H PO STA (17:18)
[2024-02-09] MEDS ORDERED: hydrOXYzine HCL 25 MG TAB PO PRN (19:22)
--- NOTE | 2024-02-09 19:36 | P.HPIM ---
Review of Systems This is a pleasant 48 years old female who was recently discharged from this facility about a month ago for Acute appendicitis with perforation and abscess. Status post open ileocecectomy. She was discharged with PICC line and outpatient Zosyn. Returns back were sent from her doctor's office for possible wound site infection seen on CAT scan done as an outpatient. Patient denies abdominal pain vomiting or diarrhea. No other urinary, signs or symptoms. No chest pain or dyspnea. No headache dizziness weakness numbness Patient was very upset she has been admitted to the hospital. She was emotional and crying and stated that [facility] because she stayed in the hospital for 10 days last month. Patient was threatening to leave AMA. However risk and benefit explained to her and she agrees to stay. She was very agitated shouting yelling at the staff and looks agitated. On admission she is afebrile. Rest of vitals look stable. Lactic acid was not elevated. No leukocytosis. BMP and liver enzymes were unremarkable Blood culture is requested. Patient was started on daptomycin and Zosyn and normal saline 75 mL/h Past Medical History Past Medical History: Diabetes Mellitus, Hyperlipidemia, Hypertension History of Any Multi-Drug Resistant Organisms: None Reported Past Surgical History: Appendectomy Additional Past Surgical History / Comment(s): partial hysterectomy, post op infection from [facility] in december 2023 but currently on out patient antibiotics through a picc line Smoking Status: Current every day smoker Medications and Allergies Home Medications Medication Instructions Recorded Confirmed Type Atorvastatin [Lipitor] 10 mg PO DAILY 01/08/24 02/09/24 History DULoxetine HCL [Cymbalta] 60 mg PO DAILY 01/08/24 02/09/24 History Metoprolol Succinate [Metoprolol 25 mg PO DAILY 01/08/24 02/09/24 History Succinate ER] lisinopriL [Zestril] 5 mg PO DAILY 01/08/24 02/09/24 History metFORMIN HCL [Glucophage] 500 mg PO DAILY 01/08/24 02/09/24 History Allergies Allergy/AdvReac Type Severity Reaction Status Date / Time No Known Allergies Allergy Verified 02/09/24 10:58 Physical Exam Vitals: Vital Signs Temp Pulse Resp BP Pulse Ox 02/09/24 11:31 91 22 115/58 97 02/09/24 07:26 97.9 F 88 18 140/85 100 Intake and Output 02/09/24 02/09/24 02/09/24 06:59 14:59 22:59 Other: Weight 99.79 kg -GENERAL: The patient is alert and oriented x3, not in any acute distress. Well developed, well nourished. Obese HEENT: Pupils are round and equally reacting to light. EOMI. No scleral icterus. No conjunctival pallor. Normocephalic, atraumatic. No pharyngeal erythema. No thyromegaly. CARDIOVASCULAR: S1 and S2 present. No murmurs, rubs, or gallops. PULMONARY: Chest is clear to auscultation, no wheezing , no crackles. -ABDOMEN: Soft, nontender, nondistended, normoactive bowel sounds. No palpable organomegaly. Vertical mid abdominal incision, closed, there is small opening in the lower part with some discharge MUSCULOSKELETAL: No joint swelling or deformity. EXTREMITIES: No cyanosis, clubbing, or pedal edema. NEUROLOGICAL: Gross neurological examination did not reveal any focal deficits. SKIN: No rashes. no petechiae. Results CBC & Chem 7: 02/09/24 08:32 02/09/24 08:32 Labs: Abnormal Lab Results - Last 24 Hours (Table) 02/09/24 02/09/24 Range/Units 08:32 11:30 Chloride 108 H (98-107) mmol/L Glucose 106 H (74-99) mg/dL Ur Leukocyte Esterase Large H (Negative) Urine WBC 24 H (0-5) /hpf Urine Mucus Rare H (None) /hpf Assessment and Plan Assessment: abdomin vertical wound site infection from recent Acute appendicitis with perforation and abscess. Status post open ileocecectomy about 1 month ago Agitation and anxiety Hypertension Diabetes mellitus Hyperlipidemia Obesity with BMI of 33.5 Plan: Continue with daptomycin and Zosyn Continue with normal saline Continue to follow-up blood culture Infectious disease consult Surgical team consult Will consult for psych for agitation Start Ativan as needed and Atarax as needed Labs and medication were reviewed.. Continue same treatment. Continue with symptomatic treatment. Resume home medication. Monitor labs and vitals. DVT and GI prophylaxis. Further recommendations as per clinical course of the patient DVT prophylaxis: Subcutaneous Lovenox GI Prophylaxis: Pepcid Prognosis is guarded
--- NOTE | 2024-02-09 22:15 | P.CONS ---
History of Present Illness - Reason for Consult Consult date: 02/09/24 Postop infection Requesting physician: Brett Hernandez - Chief Complaint Abdominal CT x 1 day - History of Present Illness Patient is a 48-year-old female with a past medical history significant e for diabetes mellitus hypertension hyperlipidemia recent admission to the hospital with a perforated appendicitis and abscess in this patient who is status post open ileocecectomy with a drainage of the abscess on 01/09/2024 patient abdominal culture at that time were positive for Pseudomonas aeruginosa Klebsiella E. coli and bacteroids that has been treated with Zosyn patient did have drainage catheter removed about a week ago on outpatient visit with the surgery as overall output has been down to less than 5 cc patient did have a follow-up CT completed on 02/07/2024 that was suggestive of fluid collection along the lateral abdominal wall surgical site extending at least 30 cm with a foci of gas concerning for an abscess I personally called the patient yesterday to discuss the CT results and told her she needed to come to the hospital however the patient mention she did have things to do and ended up showing to the ER this morning patient subsequently has been evaluated by the ER physician on arrival to the ER the patient was afebrile patient was not tachycardic hypotensive or hypoxic did have normal white count she was continued on Zosyn and admitted to hospital infectious he was consulted for further management of antibiotic therapy patient is very upset as she wants to go home and work as she cannot miss work and did not want to lose her house patient mention no fever or any chills no headache no chest pain shortness of breath or cough denies significant abdominal pain no nausea vomiting or diarrhea Review of Systems Positive point and negatives has been mentioned in the HPI, complete review of systems was performed and all other systems are negative Past Medical History Past Medical History: Diabetes Mellitus, Hyperlipidemia, Hypertension History of Any Multi-Drug Resistant Organisms: None Reported Past Surgical History: Appendectomy Additional Past Surgical History / Comment(s): partial hysterectomy Smoking Status: Current every day smoker Medications and Allergies Home Medications Medication Instructions Recorded Confirmed Type Atorvastatin [Lipitor] 10 mg PO DAILY 01/08/24 02/09/24 History DULoxetine HCL [Cymbalta] 60 mg PO DAILY 01/08/24 02/09/24 History Metoprolol Succinate [Metoprolol 25 mg PO DAILY 01/08/24 02/09/24 History Succinate ER] lisinopriL [Zestril] 5 mg PO DAILY 01/08/24 02/09/24 History metFORMIN HCL [Glucophage] 500 mg PO DAILY 01/08/24 02/09/24 History Allergies Allergy/AdvReac Type Severity Reaction Status Date / Time No Known Allergies Allergy Verified 02/09/24 10:58 Physical Exam Vitals: Vital Signs Temp Pulse Resp BP Pulse Ox 02/09/24 11:31 91 22 115/58 97 02/09/24 07:26 97.9 F 88 18 140/85 100 Intake and Output 02/08/24 02/09/24 02/09/24 22:59 06:59 14:59 Other: Weight 99.79 kg GENERAL DESCRIPTION: Middle-aged female lying in bed, no distress. No tachypnea or accessory muscle of respiration use. HEENT: Shows Pallor , no scleral icterus. Oral mucous membrane is dry. NECK: Trachea central, no thyromegaly. LUNGS: Unlabored breathing. Clear to auscultation anteriorly. No wheeze or crackle. HEART: S1, S2, regular rate and rhythm. No loud murmur ABDOMEN: Soft, no tenderness , guarding or rigidity, EXTREMITIES: No edema of feet. SKIN: No rash, no masses palpable. NEUROLOGICAL: The patient is awake, alert, oriented x3, mood and affect normal. Results CBC & Chem 7: 02/09/24 08:32 02/10/24 03:03 Labs: Abnormal Lab Results - Last 24 Hours (Table) 02/09/24 02/09/24 Range/Units 08:32 11:30 Chloride 108 H (98-107) mmol/L Glucose 106 H (74-99) mg/dL Ur Leukocyte Esterase Large H (Negative) Urine WBC 24 H (0-5) /hpf Urine Mucus Rare H (None) /hpf Assessment and Plan (1) Intra-abdominal abscess Status: Acute Code(s): K65.1 - PERITONEAL ABSCESS SNOMED Code(s): 27362882 Plan: 1patient with recent perforated appendicitis with an abscess requiring laparotomy with ileocecectomy and drainage of the abscess culture positive for multiple bags including Pseudomonas Klebsiella and E. coli for the patient has been on Zosyn now with a follow-up CT did shows evidence of abdominal wall fluid collection with gas concerning for an abscess 2patient needed CT-guided drainage of this abscess and fluid should be sent for the culture both aerobes and anaerobes 3patient is currently covered with Zosyn we will add daptomycin for gram- positive coverage while waiting for the workup to be completed Multiple question concern answered We will follow on clinical condition and cultures to further adjust medication if needed Thank you for this consultation we will follow the patient along with you Dictation was produced using [employer] dictation software. please excuse any grammatical, word or spelling errors. Time with Patient: Greater than 30
[2024-02-10 08:21] VITALS: TEMP 98.1
[2024-02-10] MEDS: LORazepam 2 MG/ML INJ IV PRN (08:43)
[2024-02-10] MEDS: ENOXAPARIN 40 MG/0.4 ML SYRINGE SQ SCH (08:49)
[2024-02-10] MEDS: PANTOPRAZOLE 40 MG/10 ML VIAL IVP SCH (08:49)
[2024-02-10] MEDS ORDERED: DULoxetine HCL 60 MG CAPSULE.DR PO SCH (09:00)
[2024-02-10] MEDS ORDERED: lisinopriL 5 MG TAB PO SCH (09:00)
[2024-02-10] MEDS ORDERED: METOPROLOL SUCCINATE (ER) 25 MG TAB.ER.24H PO SCH (09:00)
[2024-02-10] MEDS ORDERED: metFORMIN 500 MG TAB PO SCH (09:00)
[2024-02-10] MEDS ORDERED: ATORVASTATIN 10 MG TAB PO SCH (09:00)
[2024-02-10 09:07] LABS: BUN/Creat Ratio 17.17 Ratio (12.00-20.00); Blood Urea Nitrogen 10.3 mg/dL (9.0-27.0); Calcium 9.2 mg/dL (8.7-10.3); Carbon Dioxide 22.4 mmol/L (21.6-31.8); Chloride 108 mmol/L (96-109); Glucose 105 mg/dL (70-110); Sodium 142 mmol/L (135-145)
[2024-02-10 10:51] VITALS: BP 126/78; PULSE 83; RESP 12
--- NOTE | 2024-02-10 11:46 | P.PN ---
Subjective Progress Note Date: 02/10/24 SURGICAL PROGRESS NOTE CHIEF COMPLAINT: Anterior abdominal wall fluid collection HISTORY OF PRESENT ILLNESS: Patient has no new complaints. Denies any abdominal pain. She has been having some drainage from the incision site. Afebrile. Patient was evaluated by IR service there is no drainable fluid collection. Patient wants to be discharged. PHYSICAL EXAM: VITAL SIGNS: Reviewed. GENERAL: Well-developed in no acute distress. ABDOMEN: Soft. Nondistended. Nontender. Midline incision with a hole at the umbilicus with some clearish drainage. Yellowish tissue is noted. Some clearish discharge from the distal aspect of the incision. NEUROLOGIC: Alert and oriented. Cranial nerves II through XII grossly intact. ASSESSMENT: 1. Anterior abdominal wall fluid collection noted on CAT scan 2. Status post recent open ileocecectomy for perforated appendicitis with abscess on 01/09/2024 PLAN: -Patient can be discharged from surgical standpoint. Cultures were obtained of the drainage. Dr. Alston plans to follow-up on culture results in the office. Case discussed with Dr. Villareal and Dr. Ramirez. -Discharge antibiotics per infectious disease. Physician Color Developer note has been reviewed by physician. Signing provider agrees with the documented findings, assessment, and plan of care. Objective - Vital Signs Vital signs: Vital Signs Temp 98.1 F 02/10/24 07:37 Pulse 83 02/10/24 10:49 Resp 12 02/10/24 10:49 BP 126/78 02/10/24 10:49 Pulse Ox 94 L 02/10/24 10:49 FiO2 Intake & Output 02/09/24 02/10/24 02/10/24 18:59 06:59 18:59 Weight 99.79 kg Other: # Voids 1 2 - Labs CBC & Chem 7: 02/09/24 08:32 02/10/24 03:03 Labs: Abnormal Lab Results - Last 24 Hours (Table) 02/09/24 Range/Units 11:30 Ur Leukocyte Esterase Large H (Negative) Urine WBC 24 H (0-5) /hpf Urine Mucus Rare H (None) /hpf Assessment and Plan Assessment: Discussed w/ radiology, no drainable fluid collection. Pt has source control as she has a small break in her incision from subcutaneous fluid collection that has completely drained. Ok for discharge as patent is feeling well, no pain and is asking to go home. Time with Patient: Less than 30
--- NOTE | 2024-02-10 11:50 | US ---
EXAMINATION TYPE: US abdomen limited DATE OF EXAM: 02/10/2024 11:19 AM SITE: [facility] CLINICAL INDICATION: Female, 48 years old with history of Abdominal fluid collection; , [facility] COMPARISON: . CT 02/07/2024 TECHNIQUE: Limited abdominal grayscale imaging of the abdomen for fluid collection. FINDINGS: No target wall fluid collection visualized. Phlegmonous tissue noted. Procedure canceled at that time . Shadowing does limit evaluation. IMPRESSION: Heterogenous tissue with no discrete subcutaneous organizing fluid collection visualized. [facility], , 02/10/2024 11:47 AM
--- NOTE | 2024-02-10 14:39 | P.PN ---
Subjective Progress Note Date: 02/10/24 Principal diagnosis: Reason for follow-up is abdominal wall/intra-abdominal abscess Patient is a 48-year-old female with a past medical history significant e for diabetes mellitus hypertension hyperlipidemia recent admission to the hospital with a perforated appendicitis and abscess in this patient who is status post open ileocecectomy with a drainage of the abscess on 01/09/2024 patient abdominal culture at that time were positive for Pseudomonas aeruginosa Klebsiella E. coli and bacteroids for the patient was getting outpatient Zosyn with the follow-up CT did shows worsening abdominal wall abscess for the patient has been admitted to the hospital. Patient has been evaluated by IR and mention no drainable fluid collection On today's evaluation that is a 02/10/2024,the patient remains to be afebrile, patient is on room air not requiring supplemental oxygen and denies any shortness of breath no chest pain or cough.Patient denies having any nausea or vomiting, no abdominal pain and no diarrhea has been reported patient feeling better wants to go home. Patient did have creatinine 0.6 no CBC was done today Objective - Vital Signs Vital signs: Vital Signs Temp 98.1 F 02/10/24 07:37 Pulse 83 02/10/24 10:49 Resp 12 02/10/24 10:49 BP 126/78 02/10/24 10:49 Pulse Ox 94 L 02/10/24 10:49 FiO2 Intake & Output 02/09/24 02/10/24 02/10/24 18:59 06:59 18:59 Weight 99.79 kg Other: # Voids 1 2 - Exam GENERAL DESCRIPTION: Middle-age female up in the room in no distress RESPIRATORY SYSTEM: Unlabored breathing , decreased breath sounds at bases HEART: S1 S2 regular rate and rhythm , ABDOMEN: Soft , no tenderness EXTREMITIES: No edema feet - Labs CBC & Chem 7: 02/09/24 08:32 02/10/24 03:03 Labs: Abnormal Lab Results - Last 24 Hours (Table) 02/09/24 Range/Units 11:30 Ur Leukocyte Esterase Large H (Negative) Urine WBC 24 H (0-5) /hpf Urine Mucus Rare H (None) /hpf Assessment and Plan (1) Intra-abdominal abscess Status: Acute Code(s): K65.1 - PERITONEAL ABSCESS SNOMED Code(s): 93518655 Plan: 1patient with recent perforated appendicitis with an abscess requiring laparotomy with ileocecectomy and drainage of the abscess culture positive for multiple bags including Pseudomonas Klebsiella and E. coli for the patient has been on Zosyn now with a follow-up CT did shows evidence of abdominal wall fluid collection with gas concerning for an abscess 2patient patient apparently has been evaluated by IR service and mention no fluid to drain which is currently contradicting the initial CAT scan patient apparently did have some drainage from her abdominal incision and culture obtained by the surgeon as the patient has been insisting on going home instead of waiting for the culture she has been advised a 10-day course of Zosyn and daptomycin she will follow-up in the office on Wednesday to go over the results of the culture Dictation was produced using [employer] dictation software. please excuse any grammatical, word or spelling errors. Time with Patient: Less than 30
--- NOTE | 2024-02-10 23:44 | P.DS ---
Providers Date of admission: 02/09/24 10:19 Attending physician: Linus Ramirez MD Consults: 02/09/24 10:19 Consult Physician Routine Consulting Provider: Quintin Alston Consult Reason/Comments: Concern for abdominal wall abscess Do you want consulting provider notified?: Yes Consult Physician Routine Consulting Provider: Lore Villareal Consult Reason/Comments: post op infection Do you want consulting provider notified?: Yes 02/09/24 19:23 Consult Physician Routine Consulting Provider: Kolton Cline Consult Reason/Comments: agitated , throwing and yelling Do you want consulting provider notified?: Yes Primary care physician: Stated None Assessment: Diagnoses: abdomin vertical wound site infection from recent Acute appendicitis with perforation and abscess. Status post open ileocecectomy about 1 month ago Agitation and anxiety Hypertension Diabetes mellitus Hyperlipidemia Obesity with BMI of 33.5 Hospital course: This is a pleasant 48 years old female who was recently discharged from this facility about a month ago for Acute appendicitis with perforation and abscess. Status post open ileocecectomy. She was discharged with PICC line and outpatient Zosyn. Returns back were sent from her doctor's office for possible wound site infection seen on CAT scan done as an outpatient. Patient evaluated by general surgery team and cleared for discharge. Today Dr. Ribeiro called me stating the patient can be discharged and he made an appointment for her on 02/[address] Parksed cleared her for discharge on IV daptomycin and Zosyn, also he going to follow-up with her this coming Wednesday on 02/13. When I went into the room patient was already dressed up was eager to go home today " I was waiting for you for 2 hours to go home" she states Patient has PICC line in place. Plan of care discussed with the patient including the follow-up recommendations and appointments and she is agreeable Patient denies any other new complaints Patient was cleared for discharge by ID team and surgery team Problems and management plan were discussed with the patient and he verbalized understanding and acceptance Patient was found stable and can be discharged home in guarded prognosis however he needs follow-up as an outpatient. Patient was instructed to follow up with PCP within one week and patient agrees Patient was suspected to follow-up with her appointments as above Physical exam Gen: patient is a AAOx3, no distress CVS: S1-S2, RRR, no murmur Lungs: B/L CTA, no wheezing Abdomen: soft, no distention, no tenderness, positive bowel sounds -Extremity: no leg edema or induration. Right arm PICC line Time spent more than 35 minutes Patient Condition at Discharge: Stable Plan - Discharge Summary New Discharge Prescriptions: Continue lisinopriL [Zestril] 5 mg PO DAILY DULoxetine HCL [Cymbalta] 60 mg PO DAILY Atorvastatin [Lipitor] 10 mg PO DAILY metFORMIN HCL [Glucophage] 500 mg PO DAILY Metoprolol Succinate [Metoprolol Succinate ER] 25 mg PO DAILY Discharge Medication List Atorvastatin [Lipitor] 10 mg PO DAILY 01/08/24 [History] DULoxetine HCL [Cymbalta] 60 mg PO DAILY 01/08/24 [History] Metoprolol Succinate [Metoprolol Succinate ER] 25 mg PO DAILY 01/08/24 [History] lisinopriL [Zestril] 5 mg PO DAILY 01/08/24 [History] metFORMIN HCL [Glucophage] 500 mg PO DAILY 01/08/24 [History] Follow up Appointment(s)/Referral(s): Quintin Alston DO [Doctor of Osteopathic Medicine] - 02/15/24 11:00 am () [facility], [NON-STAFF] - As Needed [facility] [NON-STAFF] - 1 Week [facility] [NON-STAFF] - 1 Week None,Stated [Primary Care Provider] - 1-2 days [facility], [REFERRING] - As Needed Lore Villareal MD [STAFF PHYSICIAN] - 02/14/24 2:30 pm Activity/Diet/Wound Care/Special Instructions: Heart healthy diet Activity is restricted till you see your doctor Discharge/Stand Alone Forms: PH Area PCPs Discharge Disposition: HOME WITH HOME HEALTH SERVICES
== END 2024-02-10 13:09 | disposition home health service (06) | DRG 721 ==
LOC: EC 07:25 → 4SSUR 10:19
PROVIDERS: ADMIT Internal Medicine; ATTEND Internal Medicine
DX: T81.41XA Infection following a procedure, superficial incisional surgical site, initial encounter (principal); Z79.84 Long term (current) use of oral hypoglycemic drugs; Z79.899 Other long term (current) drug therapy; Z90.711 Acquired absence of uterus with remaining cervical stump; I10 Essential (primary) hypertension; R14.3 Flatulence; Y84.8 Other medical procedures as the cause of abnormal reaction of the patient, or of later complication, without mention of misadventure at the time of the procedure; E78.5 Hyperlipidemia, unspecified; E66.9 Obesity, unspecified; Z68.33 Body mass index [BMI] 33.0-33.9, adult; E11.9 Type 2 diabetes mellitus without complications; F17.210 Nicotine dependence, cigarettes, uncomplicated; Z53.8 Procedure and treatment not carried out for other reasons; F41.9 Anxiety disorder, unspecified
CPT/HCPCS: 36415; 76705; 80048; 80053; 81001; 83036; 83605; 85025; 85610; 85730; 87040; 87070; 87075; 87205; 96361; 96374; 99285